=== PATIENT | male | born 1995 | race Caucasian/White ===

== ENCOUNTER 2022-09-12 10:54 | Inpatient (IN) | payer OTHER ==
[2022-09-12] MEDS ORDERED: Morphine 4 MG/ML VIAL ONE ×3 (12:11→16:34)
[2022-09-12] MEDS ORDERED: Ketorolac Tromethamine 30 MG/ML VIAL ONE (13:51)
[2022-09-12] MEDS ORDERED: Albuterol 200 PUFF (6.7GM INHALER) INH PRN (15:21)
[2022-09-12] MEDS ORDERED: Piperacillin/Tazobactam 3.375 GM in Sodium Chloride 0.9% 100 ML IVPB SCH ×2 (15:30→16:00)
[2022-09-12] MEDS ORDERED: Piperacillin/Tazobactam 3.375 GM VIAL ONE (15:56)
[2022-09-12] MEDS ORDERED: VANCOMYCIN 1.75 GM/500 ML BAG 1.75 GM in Premix Bag 1 BAG IVPB SCH (16:00)
[2022-09-12] MEDS ORDERED: Morphine 4 MG/ML VIAL SLOW IVP SCH (16:30)
[2022-09-12 16:43] LABS: HIV (1/2) Antibody/Antigen Non-Reactive (NonReactive); HIV 1/2 INDEX 0.14 S/CO (<1.00)
[2022-09-12] MEDS: Acetaminophen 325 MG TAB PO PRN (17:58)
[2022-09-12] MEDS: Morphine 4 MG/ML VIAL SLOW IVP PRN ×2 (17:59→21:16)
[2022-09-12 18:16] LABS: ALT (SGPT) 93 U/L (8-55); AST (SGOT) 72 U/L (5-34); Albumin 3.1 g/dL (3.5-5.0); Alkaline Phosphatase 388 U/L (40-110); Bilirubin, Direct 0.6 mg/dL (0.1-0.3); Bilirubin, Total 0.9 mg/dL (0.2-1.2); Protein, Total 6.6 g/dL (6.0-8.3)
[2022-09-12] MEDS: Sodium Chloride 0.9% 1,000 ML IV SCH (19:47)
[2022-09-12] MEDS: Piperacillin/Tazobactam 3.375 GM in Sodium Chloride 0.9% 100 ML IVPB SCH (19:58)
[2022-09-12] MEDS: Vancomycin 1 GM in Premix Bag 1 BAG IVPB SCH (23:35)
[2022-09-13] MEDS: Morphine 4 MG/ML VIAL SLOW IVP PRN ×2 (00:25→03:48)
[2022-09-13] MEDS: Piperacillin/Tazobactam 3.375 GM in Sodium Chloride 0.9% 100 ML IVPB SCH ×3 (03:30→20:08)
[2022-09-13 03:57] LABS: #Basophils 0.1 thou/uL (0.0-0.2); #Monocytes 1.2 thou/uL (0.11-0.59); #Neutrophils 23.2 thou/uL (1.40-6.50); %Basophils 0.4 % (0.0-1.0); %Lymphocytes 2.2 % (21.0-51.0); %Monocytes 4.6 % (0.0-10.0); %Neutrophils 92.2 % (42.0-75.0); Hematocrit 36.3 % (42.0-52.0); Hemoglobin 11.7 g/dL (14.0-18.0); Mean Corpuscular HGB CONC 32.2 g/dL (32.0-36.0); Mean Corpuscular Hemoglobin 29.3 pg (27.0-31.0); Mean Corpuscular Volume 90.8 fl (78.0-98.0); Mean Platelet Volume 8.9 fL (7.4-10.4); Platelet Count 495 10x3/uL (130-400); RBC Distribution Width 13.2 % (11.5-14.5); White Blood Cell (WBC) Count 25.2 10x3/uL (4.8-10.8)
[2022-09-13 04:27] LABS: Anion Gap 13 mmol/L (10-20); BUN (Urea Nitrogen) 10 mg/dL (8.9-20.6); Calc. Creatinine Clearance 140 mL/min (70-130); Calcium 8.9 mg/dL (7.8-10.44); Carbon Dioxide 23 mmol/L (22-29); Chloride 98 mmol/L (98-107); Estimated GFR 127; Glucose 79 mg/dL (70-105); Potassium 3.8 mmol/L (3.5-5.1); Sodium 130 mmol/L (136-145)
[2022-09-13 04:38] LABS: Manual Diff?? YES
[2022-09-13 06:33] LABS: Band 11 % (5-11); Burr Cells SLIGHT = 2-5 cells HPF (0-1); CellaVision Operator ID LAB.JMM; Lymphocytes 1 % (21-51); Monocytes 4 % (0-10); Neutrophil 84 % (42-75); Platelet Adequacy Comment Platelets Normal; Polychromasia SLIGHT = 2-3 cells HPF (0-2); Total Cell Count 98
[2022-09-13] MEDS: Vancomycin 1 GM in Premix Bag 1 BAG IVPB SCH ×3 (07:13→18:33)
[2022-09-13] MEDS: Sodium Chloride 0.9% 1,000 ML IV SCH ×2 (07:13→20:10)
[2022-09-13] MEDS: Acetaminophen 325 MG TAB PO PRN (07:29)
[2022-09-13 10:03] LABS: HBSAB Concentration Less than 8.00 mIU/mL; HBSAg Index 0.17 S/CO (0-0.99); Hep A IgM AB Non-Reactive S/CO (NonReactive); Hep A IgM S/CO 0.15 S/CO (0-0.79); Hep B Core Total Ab Non-Reactive (NonReactive); Hep B Surf AB Non-Reactive (NonReactive); Hep B Surf Ag Non-Reactive S/CO (NonReactive); Hep C IgG Ab Non-Reactive S/CO (NonReactive); Hep C Index 0.08 S/CO (0-0.79)
[2022-09-13] MEDS: fentaNYL 50 mcg/mL 1 mL Vial SLOW IVP PRN ×5 (11:28→22:22)
[2022-09-13] MEDS ORDERED: Propofol 1,000 MG/100 ML VIAL IV PRN (12:22)
[2022-09-13] MEDS ORDERED: Lorazepam 0.5 MG TAB PO PRN (16:39)
[2022-09-13] MEDS ORDERED: Lorazepam 2 MG/ML VIAL SLOW IVP PRN (16:39)
[2022-09-13] MEDS ORDERED: Dexmedetomidine In 0.9 % NaCl 100 ML IVPB SCH (16:45)
[2022-09-13] MEDS: Guaifenesin DM 100-10/5 ML UDCUP PO PRN (17:16)
[2022-09-13] MEDS: Dexmedetomidine 400 MCG, Admixture Fee 1 EACH in Sodium Chloride 0.9% 96 ML IVPB SCH (20:09)
[2022-09-13 20:56] LABS: RBC Count-Automated (BF) 2146 /cu.mm; WBC/Nucleated-Auto (BF) 15278 /cu.mm
[2022-09-13 21:07] LABS: BF Color Yellow; Body Fluid Source Thoracentesis Fluid; Clarity Cloudy/Turbid (Clear); Tube # EDTA
[2022-09-13 21:09] LABS: BF Segmented Neutrophils 65 %; Cell Count Non Hematic 19 %; Lymphocytes 14 %
[2022-09-13 23:01] LABS: Actual Bicarbonate (HCO3a) 27.4 mEq/L (22-28); Base Excess (BEa) 2.1 mEq/L (-2.0 to +3.0); CO2 Tension 45.3 mmHg (35.0-45.0); Calcium, Ionized (arterial) 1.18 mmol/L (1.12-1.30); Carboxyhemoglobin (COHb) 0.2 gm% (0.0-3.0); Hematocrit-ABG 37 % (42.0-52.0); Hemoglobin (Hb) 12.5 g/dL (14.0-18.0); O2 Tension (PaO2), arterial 99.4 mmHg (80.0-100.0); Potassium - ABG Lab 3.75 mmol/L (3.70-5.30); pH, Arterial 7.399 (7.35-7.45)
[2022-09-13 23:18] LABS: Puncture Site RRA
[2022-09-13 23:20] LABS: ALV-art Gradient 129.175 mmHg (0-20)
[2022-09-14] MEDS: fentaNYL 50 mcg/mL 1 mL Vial SLOW IVP PRN ×4 (00:59→11:24)
[2022-09-14] MEDS: Vancomycin 1 GM in Premix Bag 1 BAG IVPB SCH (01:00)
[2022-09-14 01:29] LABS: #Eosinphils 0.1 thou/uL (0.0-0.7); #Monocytes 0.8 thou/uL (0.11-0.59); #Neutrophils 13.1 thou/uL (1.40-6.50); %Basophils 0.3 % (0.0-1.0); %Eosinophils 0.3 % (0.0-10.0); %Lymphocytes 3.2 % (21.0-51.0); %Monocytes 5.4 % (0.0-10.0); %Neutrophils 90.3 % (42.0-75.0); Hematocrit 32.6 % (42.0-52.0); Hemoglobin 10.7 g/dL (14.0-18.0); Mean Corpuscular HGB CONC 32.8 g/dL (32.0-36.0); Mean Corpuscular Hemoglobin 29.5 pg (27.0-31.0); Mean Corpuscular Volume 89.8 fl (78.0-98.0); Mean Platelet Volume 9.1 fL (7.4-10.4); Platelet Count 393 10x3/uL (130-400); Red Blood Cell (RBC) Count 3.63 mill/uL (4.70-6.10); White Blood Cell (WBC) Count 14.5 10x3/uL (4.8-10.8)
[2022-09-14] MEDS ORDERED: Vancomycin HCl 500 MG in Sodium Chloride 0.9% 100 ML IVPB SCH (02:00)
[2022-09-14 02:43] LABS: ALT (SGPT) 69 U/L (8-55); AST (SGOT) 54 U/L (5-34); Albumin 2.7 g/dL (3.5-5.0); Alkaline Phosphatase 251 U/L (40-110); Anion Gap 12 mmol/L (10-20); BUN (Urea Nitrogen) 11 mg/dL (8.9-20.6); Bilirubin, Total 1.6 mg/dL (0.2-1.2); Calc. Creatinine Clearance 157 mL/min (70-130); Calcium 9.1 mg/dL (7.8-10.44); Carbon Dioxide 25 mmol/L (22-29); Chloride 97 mmol/L (98-107); Estimated GFR 131; Globulin 3.7 g/dL (2.4-3.5); Glucose 93 mg/dL (70-105); Potassium 3.9 mmol/L (3.5-5.1); Protein, Total 6.4 g/dL (6.0-8.3); Sodium 130 mmol/L (136-145)
[2022-09-14] MEDS: Piperacillin/Tazobactam 3.375 GM in Sodium Chloride 0.9% 100 ML IVPB SCH ×3 (03:20→19:15)
[2022-09-14] MEDS: Pyrazinamide 500 MG TAB PO SCH ×2 (07:40→07:43)
[2022-09-14] MEDS: Rifampin 300 MG CAP PO SCH (07:43)
[2022-09-14] MEDS: pyridOXINE 50 MG (B6) TAB PO SCH (07:44)
[2022-09-14] MEDS: Ethambutol HCl 400 MG TAB PO SCH (07:44)
[2022-09-14] MEDS: Isoniazid 100 MG TAB PO SCH (07:44)
[2022-09-14] MEDS: Dexmedetomidine 400 MCG, Admixture Fee 1 EACH in Sodium Chloride 0.9% 96 ML IVPB SCH (07:47)
[2022-09-14] MEDS: Guaifenesin DM 100-10/5 ML UDCUP PO PRN ×4 (09:27→22:11)
[2022-09-14] MEDS: Sodium Chloride 0.9% 1,000 ML IV SCH ×2 (11:25→23:41)
[2022-09-14] MEDS: Vancomycin 1.5 GRAM/300 ML BAG 1.5 GM in Premix Bag 1 BAG IVPB SCH ×2 (11:25→17:41)
[2022-09-14] MEDS ORDERED: Naloxone HCl 0.4 mg/ml Vial IV PRN (14:00)
[2022-09-14] MEDS: HYDROmorphone/PF 10 MG in Sodium Chloride 0.9% 99 ML IVPB PRN (14:50)
[2022-09-15] MEDS: Vancomycin 1.5 GRAM/300 ML BAG 1.5 GM in Premix Bag 1 BAG IVPB SCH ×2 (01:09→11:01)
[2022-09-15 01:28] LABS: #Eosinphils 0.1 thou/uL (0.0-0.7); #Monocytes 0.7 thou/uL (0.11-0.59); %Basophils 0.4 % (0.0-1.0); %Eosinophils 0.7 % (0.0-10.0); %Lymphocytes 10.1 % (21.0-51.0); %Monocytes 9.2 % (0.0-10.0); %Neutrophils 79.2 % (42.0-75.0); Hematocrit 37.3 % (42.0-52.0); Hemoglobin 11.7 g/dL (14.0-18.0); Mean Corpuscular HGB CONC 31.4 g/dL (32.0-36.0); Mean Corpuscular Hemoglobin 29.1 pg (27.0-31.0); Mean Corpuscular Volume 92.8 fl (78.0-98.0); Mean Platelet Volume 8.9 fL (7.4-10.4); Platelet Count 323 10x3/uL (130-400); Red Blood Cell (RBC) Count 4.02 mill/uL (4.70-6.10); White Blood Cell (WBC) Count 7.6 10x3/uL (4.8-10.8)
[2022-09-15 02:01] LABS: ALT (SGPT) 70 U/L (8-55); AST (SGOT) 69 U/L (5-34); Albumin 2.7 g/dL (3.5-5.0); Alkaline Phosphatase 364 U/L (40-110); Anion Gap 16 mmol/L (10-20); BUN (Urea Nitrogen) 15 mg/dL (8.9-20.6); Bilirubin, Total 1.5 mg/dL (0.2-1.2); Calc. Creatinine Clearance 146 mL/min (70-130); Calcium 8.9 mg/dL (7.8-10.44); Carbon Dioxide 21 mmol/L (22-29); Chloride 99 mmol/L (98-107); Estimated GFR 128; Globulin 3.8 g/dL (2.4-3.5); Glucose 83 mg/dL (70-105); Potassium 4.1 mmol/L (3.5-5.1); Protein, Total 6.5 g/dL (6.0-8.3); Sodium 132 mmol/L (136-145)
[2022-09-15] MEDS: Piperacillin/Tazobactam 3.375 GM in Sodium Chloride 0.9% 100 ML IVPB SCH ×3 (04:16→19:29)
[2022-09-15] MEDS: Guaifenesin DM 100-10/5 ML UDCUP PO PRN ×3 (07:50→17:12)
[2022-09-15] MEDS: pyridOXINE 50 MG (B6) TAB PO SCH (08:27)
[2022-09-15] MEDS: Ethambutol HCl 400 MG TAB PO SCH (08:27)
[2022-09-15] MEDS: Isoniazid 100 MG TAB PO SCH (08:29)
[2022-09-15] MEDS: Pyrazinamide 500 MG TAB PO SCH (08:29)
[2022-09-15] MEDS: Rifampin 300 MG CAP PO SCH (08:30)
[2022-09-15] MEDS: HYDROmorphone/PF 10 MG in Sodium Chloride 0.9% 99 ML IVPB PRN (10:02)
[2022-09-15 12:46] LABS: ANA Symphony (Qualitative) Negative (Negative); ANA Symphony (Quantitative) 0.6 Ratio (< 0.7 Negative); dsDNA IgG Antibody 1.4 IU/mL (<10 Negative)
[2022-09-15] MEDS: Acetaminophen 325 MG TAB PO PRN (15:10)
[2022-09-15] MEDS: Sodium Chloride 0.9% 1,000 ML IV SCH (17:12)
[2022-09-15 19:14] LABS: Cytoplasmic (C-ANCA) <1:20 titer (Neg:<1:20); Myeloperoxidase AutoAbs <0.2 units (0.0-0.9); Perinuclear (P-ANCA) <1:20 titer (Neg:<1:20); Proteinase-3 AutoAbs Less than 0.2 units (0.0-0.9)
[2022-09-15] MEDS: Guaifenesin DM 100-10/5 ML UDCUP PO SCH (20:01)
[2022-09-16] MEDS: Guaifenesin DM 100-10/5 ML UDCUP PO SCH ×6 (01:09→20:11)
[2022-09-16] MEDS: HYDROmorphone/PF 10 MG in Sodium Chloride 0.9% 99 ML IVPB PRN ×2 (01:48→15:52)
[2022-09-16] MEDS: Sodium Chloride 0.9% 1,000 ML IV SCH ×2 (01:56→15:52)
[2022-09-16] MEDS: Piperacillin/Tazobactam 3.375 GM in Sodium Chloride 0.9% 100 ML IVPB SCH ×3 (04:02→20:10)
[2022-09-16 05:14] LABS: #Eosinphils 0.1 thou/uL (0.0-0.7); #Monocytes 1.1 thou/uL (0.11-0.59); #Neutrophils 6.7 thou/uL (1.40-6.50); %Basophils 0.5 % (0.0-1.0); %Eosinophils 0.6 % (0.0-10.0); %Lymphocytes 6.3 % (21.0-51.0); %Neutrophils 78.9 % (42.0-75.0); Hematocrit 35.3 % (42.0-52.0); Hemoglobin 11.6 g/dL (14.0-18.0); Mean Corpuscular HGB CONC 32.9 g/dL (32.0-36.0); Mean Corpuscular Hemoglobin 28.7 pg (27.0-31.0); Mean Corpuscular Volume 87.4 fl (78.0-98.0); Mean Platelet Volume 8.9 fL (7.4-10.4); Platelet Count 387 10x3/uL (130-400); RBC Distribution Width 12.9 % (11.5-14.5); Red Blood Cell (RBC) Count 4.04 mill/uL (4.70-6.10); White Blood Cell (WBC) Count 8.5 10x3/uL (4.8-10.8)
[2022-09-16 06:13] LABS: ALT (SGPT) 65 U/L (8-55); AST (SGOT) 65 U/L (5-34); Albumin 2.4 g/dL (3.5-5.0); Alkaline Phosphatase 476 U/L (40-110); Anion Gap 13 mmol/L (10-20); BUN (Urea Nitrogen) 9 mg/dL (8.9-20.6); Bilirubin, Total 1.8 mg/dL (0.2-1.2); Calc. Creatinine Clearance 161 mL/min (70-130); Carbon Dioxide 27 mmol/L (22-29); Chloride 94 mmol/L (98-107); Estimated GFR 132; Globulin 3.5 g/dL (2.4-3.5); Glucose 110 mg/dL (70-105); Potassium 3.4 mmol/L (3.5-5.1); Protein, Total 5.9 g/dL (6.0-8.3); Sodium 131 mmol/L (136-145)
[2022-09-16] MEDS: Isoniazid 100 MG TAB PO SCH (08:28)
[2022-09-16] MEDS: pyridOXINE 50 MG (B6) TAB PO SCH (08:28)
[2022-09-16] MEDS: Rifampin 300 MG CAP PO SCH (08:28)
[2022-09-16] MEDS: Ethambutol HCl 400 MG TAB PO SCH (08:29)
[2022-09-16] MEDS: Pyrazinamide 500 MG TAB PO SCH (08:29)
[2022-09-16] MEDS: Ondansetron PF 4 MG/2 ML Vial IVP PRN (12:34)
[2022-09-16 20:36] LABS: Histoplasma Yeast AB (CF) Negative (Neg:<1:2)
[2022-09-17] MEDS: Guaifenesin DM 100-10/5 ML UDCUP PO SCH ×6 (00:01→21:01)
[2022-09-17] MEDS: HYDROmorphone/PF 10 MG in Sodium Chloride 0.9% 99 ML IVPB PRN ×3 (03:17→21:21)
[2022-09-17] MEDS: Piperacillin/Tazobactam 3.375 GM in Sodium Chloride 0.9% 100 ML IVPB SCH ×2 (03:18→12:10)
[2022-09-17] MEDS: Sodium Chloride 0.9% 1,000 ML IV SCH (04:36)
[2022-09-17 04:56] LABS: #Basophils 0.1 thou/uL (0.0-0.2); #Eosinphils 0.1 thou/uL (0.0-0.7); #Monocytes 1.7 thou/uL (0.11-0.59); #Neutrophils 13.8 thou/uL (1.40-6.50); %Basophils 0.3 % (0.0-1.0); %Eosinophils 0.3 % (0.0-10.0); %Lymphocytes 4.2 % (21.0-51.0); %Monocytes 10.3 % (0.0-10.0); %Neutrophils 84.2 % (42.0-75.0); Hematocrit 34.3 % (42.0-52.0); Hemoglobin 11.5 g/dL (14.0-18.0); Mean Corpuscular HGB CONC 33.5 g/dL (32.0-36.0); Mean Corpuscular Hemoglobin 29.3 pg (27.0-31.0); Mean Corpuscular Volume 87.5 fl (78.0-98.0); Mean Platelet Volume 9.1 fL (7.4-10.4); Platelet Count 405 10x3/uL (130-400); Red Blood Cell (RBC) Count 3.92 mill/uL (4.70-6.10); White Blood Cell (WBC) Count 16.4 10x3/uL (4.8-10.8)
[2022-09-17 05:27] LABS: ALT (SGPT) 54 U/L (8-55); AST (SGOT) 53 U/L (5-34); Albumin 2.4 g/dL (3.5-5.0); Alkaline Phosphatase 441 U/L (40-110); Anion Gap 12 mmol/L (10-20); BUN (Urea Nitrogen) 6 mg/dL (8.9-20.6); Calc. Creatinine Clearance 178 mL/min (70-130); Calcium 8.3 mg/dL (7.8-10.44); Carbon Dioxide 28 mmol/L (22-29); Chloride 91 mmol/L (98-107); Estimated GFR 136; Globulin 3.4 g/dL (2.4-3.5); Glucose 107 mg/dL (70-105); Potassium 3.2 mmol/L (3.5-5.1); Protein, Total 5.8 g/dL (6.0-8.3); Sodium 128 mmol/L (136-145)
[2022-09-17] MEDS: Acetaminophen 325 MG TAB PO PRN ×2 (06:28→21:01)
[2022-09-17] MEDS: Rifampin 300 MG CAP PO SCH (08:17)
[2022-09-17] MEDS: Pyrazinamide 500 MG TAB PO SCH (08:17)
[2022-09-17] MEDS: pyridOXINE 50 MG (B6) TAB PO SCH (08:17)
[2022-09-17] MEDS: Isoniazid 100 MG TAB PO SCH (08:18)
[2022-09-17] MEDS: Ethambutol HCl 400 MG TAB PO SCH (08:18)
[2022-09-17] MEDS: Pantoprazole 40 MG VIAL IVP SCH (12:11)
[2022-09-17] MEDS: Ondansetron PF 4 MG/2 ML Vial IVP PRN (15:37)
[2022-09-17 16:15] LABS: Fungus Stain Final report (.)
[2022-09-17] MEDS ORDERED: Meropenem 1 GM in Sodium Chloride 0.9% 100 ML IVPB SCH (17:00)
[2022-09-17] MEDS ORDERED: Meropenem 500 MG in Sodium Chloride 0.9% 100 ML IVPB SCH (22:00)
[2022-09-18] MEDS: Guaifenesin DM 100-10/5 ML UDCUP PO SCH ×6 (00:29→20:16)
[2022-09-18] MEDS: Meropenem 1 GM in Sodium Chloride 0.9% 100 ML IVPB SCH ×3 (00:30→16:04)
[2022-09-18 04:59] LABS: #Basophils 0.1 thou/uL (0.0-0.2); #Eosinphils 0.1 thou/uL (0.0-0.7); #Monocytes 1.8 thou/uL (0.11-0.59); #Neutrophils 12.5 thou/uL (1.40-6.50); %Basophils 0.4 % (0.0-1.0); %Eosinophils 0.5 % (0.0-10.0); %Lymphocytes 6.5 % (21.0-51.0); %Monocytes 11.4 % (0.0-10.0); %Neutrophils 80.4 % (42.0-75.0); Hematocrit 32.2 % (42.0-52.0); Hemoglobin 10.8 g/dL (14.0-18.0); Mean Corpuscular HGB CONC 33.5 g/dL (32.0-36.0); Mean Corpuscular Hemoglobin 29.4 pg (27.0-31.0); Mean Corpuscular Volume 87.7 fl (78.0-98.0); Mean Platelet Volume 9.1 fL (7.4-10.4); Platelet Count 326 10x3/uL (130-400); Red Blood Cell (RBC) Count 3.67 mill/uL (4.70-6.10); White Blood Cell (WBC) Count 15.5 10x3/uL (4.8-10.8)
[2022-09-18] MEDS: HYDROmorphone/PF 10 MG in Sodium Chloride 0.9% 99 ML IVPB PRN ×3 (05:02→20:17)
[2022-09-18 05:24] LABS: ALT (SGPT) 47 U/L (8-55); AST (SGOT) 53 U/L (5-34); Albumin 2.2 g/dL (3.5-5.0); Alkaline Phosphatase 394 U/L (40-110); Anion Gap 10 mmol/L (10-20); BUN (Urea Nitrogen) 8 mg/dL (8.9-20.6); Bilirubin, Total 2.1 mg/dL (0.2-1.2); Calc. Creatinine Clearance 192 mL/min (70-130); Calcium 8.2 mg/dL (7.8-10.44); Carbon Dioxide 32 mmol/L (22-29); Chloride 92 mmol/L (98-107); Estimated GFR 136; Globulin 3.2 g/dL (2.4-3.5); Glucose 110 mg/dL (70-105); Potassium 3.1 mmol/L (3.5-5.1); Protein, Total 5.4 g/dL (6.0-8.3); Sodium 131 mmol/L (136-145)
[2022-09-18] MEDS ORDERED: Electrolyte Replacement Protocol 1 EACH FS SCH (07:15)
[2022-09-18] MEDS ORDERED: Potassium Chloride 20 MEQ TAB PO SCH ×2 (08:00→14:00)
[2022-09-18] MEDS: Rifampin 300 MG CAP PO SCH (08:13)
[2022-09-18] MEDS: Isoniazid 100 MG TAB PO SCH (08:13)
[2022-09-18] MEDS: Ethambutol HCl 400 MG TAB PO SCH (08:13)
[2022-09-18] MEDS: Pyrazinamide 500 MG TAB PO SCH (08:13)
[2022-09-18] MEDS: pyridOXINE 50 MG (B6) TAB PO SCH (08:14)
[2022-09-18] MEDS: Pantoprazole 40 MG VIAL IVP SCH (11:59)
[2022-09-18] MEDS: Ondansetron PF 4 MG/2 ML Vial IVP PRN (11:59)
[2022-09-18 12:59] LABS: Potassium 3.4 mmol/L (3.5-5.1)
[2022-09-18] MEDS: Acetaminophen 325 MG TAB PO PRN (18:05)
[2022-09-18 18:45] LABS: Potassium 3.5 mmol/L (3.5-5.1)
[2022-09-19] MEDS: Guaifenesin DM 100-10/5 ML UDCUP PO SCH ×2 (00:31→04:32)
[2022-09-19] MEDS: Meropenem 1 GM in Sodium Chloride 0.9% 100 ML IVPB SCH ×3 (00:31→17:23)
[2022-09-19 04:29] LABS: #Basophils 0.1 thou/uL (0.0-0.2); #Eosinphils 0.1 thou/uL (0.0-0.7); #Monocytes 1.8 thou/uL (0.11-0.59); #Neutrophils 13.5 thou/uL (1.40-6.50); %Basophils 0.4 % (0.0-1.0); %Eosinophils 0.5 % (0.0-10.0); %Lymphocytes 4.8 % (21.0-51.0); %Monocytes 10.8 % (0.0-10.0); %Neutrophils 82.6 % (42.0-75.0); Hematocrit 32.7 % (42.0-52.0); Hemoglobin 10.9 g/dL (14.0-18.0); Mean Corpuscular HGB CONC 33.3 g/dL (32.0-36.0); Mean Corpuscular Hemoglobin 28.9 pg (27.0-31.0); Mean Corpuscular Volume 86.7 fl (78.0-98.0); Mean Platelet Volume 9.6 fL (7.4-10.4); RBC Distribution Width 13.2 % (11.5-14.5); Red Blood Cell (RBC) Count 3.77 mill/uL (4.70-6.10); White Blood Cell (WBC) Count 16.4 10x3/uL (4.8-10.8)
[2022-09-19 04:32] LABS: Platelet Count 437 10x3/uL (130-400)
[2022-09-19 04:49] LABS: Phosphorus 2.5 mg/dL (2.3-4.7)
[2022-09-19 04:50] LABS: ALT (SGPT) 45 U/L (8-55); AST (SGOT) 55 U/L (5-34); Albumin 2.3 g/dL (3.5-5.0); Alkaline Phosphatase 472 U/L (40-110); Anion Gap 14 mmol/L (10-20); BUN (Urea Nitrogen) 8 mg/dL (8.9-20.6); Bilirubin, Total 2.3 mg/dL (0.2-1.2); Calc. Creatinine Clearance 211 mL/min (70-130); Calcium 8.5 mg/dL (7.8-10.44); Carbon Dioxide 29 mmol/L (22-29); Chloride 90 mmol/L (98-107); Estimated GFR 141; Globulin 3.3 g/dL (2.4-3.5); Glucose 99 mg/dL (70-105); Magnesium 1.8 mg/dL (1.6-2.6); Potassium 3.5 mmol/L (3.5-5.1); Protein, Total 5.6 g/dL (6.0-8.3); Sodium 129 mmol/L (136-145)
[2022-09-19] MEDS: HYDROmorphone/PF 10 MG in Sodium Chloride 0.9% 99 ML IVPB PRN ×2 (05:34→14:56)
[2022-09-19] MEDS ORDERED: Magnesium 2 GM/50 ML(in water) 2 GM in Premix Bag 1 BAG IVPB SCH (08:00)
[2022-09-19] MEDS ORDERED: Potassium Chloride 20 MEQ TAB PO SCH (08:00)
[2022-09-19] MEDS ORDERED: Ketorolac Tromethamine 30 MG/ML VIAL IVP PRN (08:01)
[2022-09-19] MEDS: guaiFENesin ER 600 MG TAB PO SCH ×2 (08:26→20:00)
[2022-09-19] MEDS: Rifampin 300 MG CAP PO SCH (08:26)
[2022-09-19] MEDS: Pyrazinamide 500 MG TAB PO SCH (08:26)
[2022-09-19] MEDS: pyridOXINE 50 MG (B6) TAB PO SCH (08:26)
[2022-09-19] MEDS: Isoniazid 100 MG TAB PO SCH (08:27)
[2022-09-19] MEDS: Benzonatate 100 MG CAP PO SCH ×3 (08:27→20:00)
[2022-09-19] MEDS: Ethambutol HCl 400 MG TAB PO SCH (08:27)
[2022-09-19] MEDS: Pantoprazole 40 MG VIAL IVP SCH (11:59)
[2022-09-19] MEDS ORDERED: traMADol HCl 50 MG TAB PO PRN (12:20)
[2022-09-19] MEDS ORDERED: HYDROcodone/Acetaminophen 5/325 mg Tablet PO PRN (12:20)
[2022-09-19] MEDS: Ondansetron PF 4 MG/2 ML Vial IVP PRN (14:19)
[2022-09-19] MEDS: Ketorolac Tromethamine 30 MG/ML VIAL IVP SCH (17:22)
[2022-09-19] MEDS: Pregabalin 75 MG CAP PO SCH (20:00)
[2022-09-20] MEDS: Meropenem 1 GM in Sodium Chloride 0.9% 100 ML IVPB SCH ×3 (00:17→16:19)
[2022-09-20] MEDS: Ketorolac Tromethamine 30 MG/ML VIAL IVP SCH ×3 (00:17→12:10)
[2022-09-20] MEDS ORDERED: Senokot S 8.6-50 MG TAB PO PRN (02:42)
[2022-09-20] MEDS ORDERED: Sodium Chloride 0.9% 500 ML IV SCH (02:45)
[2022-09-20] MEDS ORDERED: D5 1/2 NS w/10 mEq KCl 1,000 ML/1,000 ML BAG IV SCH (02:45)
[2022-09-20 04:30] LABS: #Basophils 0.1 thou/uL (0.0-0.2); #Eosinphils 0.1 thou/uL (0.0-0.7); #Monocytes 1.7 thou/uL (0.11-0.59); #Neutrophils 17.9 thou/uL (1.40-6.50); %Basophils 0.3 % (0.0-1.0); %Eosinophils 0.7 % (0.0-10.0); %Lymphocytes 3.7 % (21.0-51.0); %Monocytes 8.3 % (0.0-10.0); %Neutrophils 86.3 % (42.0-75.0); Hematocrit 32.7 % (42.0-52.0); Hemoglobin 10.9 g/dL (14.0-18.0); Mean Corpuscular HGB CONC 33.3 g/dL (32.0-36.0); Mean Corpuscular Hemoglobin 29.1 pg (27.0-31.0); Mean Corpuscular Volume 87.2 fl (78.0-98.0); Mean Platelet Volume 8.9 fL (7.4-10.4); Platelet Count 484 10x3/uL (130-400); RBC Distribution Width 13.3 % (11.5-14.5); Red Blood Cell (RBC) Count 3.75 mill/uL (4.70-6.10); White Blood Cell (WBC) Count 20.8 10x3/uL (4.8-10.8)
[2022-09-20 04:53] LABS: ALT (SGPT) 48 U/L (8-55); AST (SGOT) 65 U/L (5-34); Albumin 2.2 g/dL (3.5-5.0); Alkaline Phosphatase 535 U/L (40-110); Anion Gap 14 mmol/L (10-20); BUN (Urea Nitrogen) 11 mg/dL (8.9-20.6); Bilirubin, Total 2.7 mg/dL (0.2-1.2); Calc. Creatinine Clearance 210 mL/min (70-130); Carbon Dioxide 27 mmol/L (22-29); Chloride 90 mmol/L (98-107); Estimated GFR 142; Globulin 3.4 g/dL (2.4-3.5); Glucose 104 mg/dL (70-105); Potassium 3.5 mmol/L (3.5-5.1); Protein, Total 5.6 g/dL (6.0-8.3); Sodium 127 mmol/L (136-145)
[2022-09-20] MEDS: HYDROmorphone/PF 10 MG in Sodium Chloride 0.9% 99 ML IVPB PRN (07:25)
[2022-09-20] MEDS ORDERED: Potassium Chloride 20 MEQ TAB PO SCH (08:00)
[2022-09-20] MEDS: Polyethylene Glycol 3350 17 GM Packet PO SCH (09:28)
[2022-09-20] MEDS: Pyrazinamide 500 MG TAB PO SCH (09:29)
[2022-09-20] MEDS: Isoniazid 100 MG TAB PO SCH (09:29)
[2022-09-20] MEDS: Pregabalin 75 MG CAP PO SCH ×2 (09:29→20:57)
[2022-09-20] MEDS: Ethambutol HCl 400 MG TAB PO SCH (09:30)
[2022-09-20] MEDS: guaiFENesin ER 600 MG TAB PO SCH ×2 (09:30→20:57)
[2022-09-20] MEDS: Rifampin 300 MG CAP PO SCH (09:30)
[2022-09-20] MEDS: Benzonatate 100 MG CAP PO SCH ×3 (09:30→20:57)
[2022-09-20] MEDS: pyridOXINE 50 MG (B6) TAB PO SCH (09:35)
[2022-09-20] MEDS: Pantoprazole 40 MG VIAL IVP SCH (12:10)
[2022-09-20] MEDS: Acetaminophen/Codeine 30-300mg Tablet PO PRN ×2 (12:21→18:00)
[2022-09-20] MEDS: Acetaminophen 325 MG TAB PO PRN (18:46)
[2022-09-20] MEDS: Melatonin 3 MG TAB PO PRN (21:24)
[2022-09-21] MEDS: Meropenem 1 GM in Sodium Chloride 0.9% 100 ML IVPB SCH ×2 (00:17→08:29)
[2022-09-21] MEDS: Acetaminophen/Codeine 30-300mg Tablet PO PRN ×4 (00:18→14:05)
[2022-09-21 04:42] LABS: #Basophils 0.1 thou/uL (0.0-0.2); #Eosinphils 0.1 thou/uL (0.0-0.7); #Monocytes 2.1 thou/uL (0.11-0.59); %Basophils 0.4 % (0.0-1.0); %Eosinophils 0.7 % (0.0-10.0); %Lymphocytes 4.8 % (21.0-51.0); %Monocytes 9.7 % (0.0-10.0); %Neutrophils 83.7 % (42.0-75.0); Hematocrit 31.7 % (42.0-52.0); Hemoglobin 10.8 g/dL (14.0-18.0); Mean Corpuscular HGB CONC 34.1 g/dL (32.0-36.0); Mean Corpuscular Hemoglobin 29.3 pg (27.0-31.0); Mean Corpuscular Volume 85.9 fl (78.0-98.0); Mean Platelet Volume 8.4 fL (7.4-10.4); Platelet Count 531 10x3/uL (130-400); RBC Distribution Width 13.6 % (11.5-14.5); Red Blood Cell (RBC) Count 3.69 mill/uL (4.70-6.10); White Blood Cell (WBC) Count 21.4 10x3/uL (4.8-10.8)
[2022-09-21 05:05] LABS: ALT (SGPT) 55 U/L (8-55); AST (SGOT) 82 U/L (5-34); Albumin 2.2 g/dL (3.5-5.0); Alkaline Phosphatase 648 U/L (40-110); Anion Gap 11 mmol/L (10-20); BUN (Urea Nitrogen) 9 mg/dL (8.9-20.6); Bilirubin, Total 2.6 mg/dL (0.2-1.2); Calc. Creatinine Clearance 200 mL/min (70-130); Carbon Dioxide 26 mmol/L (22-29); Chloride 94 mmol/L (98-107); Estimated GFR 141; Globulin 3.4 g/dL (2.4-3.5); Glucose 105 mg/dL (70-105); Potassium 3.4 mmol/L (3.5-5.1); Protein, Total 5.6 g/dL (6.0-8.3); Sodium 128 mmol/L (136-145)
[2022-09-21] MEDS ORDERED: Potassium Chloride 20 MEQ TAB PO SCH (08:00)
[2022-09-21] MEDS: Potassium Chloride 20 MEQ in Premix Bag 1 BAG IVPB SCH ×2 (08:29→10:39)
[2022-09-21] MEDS: Benzonatate 100 MG CAP PO SCH ×3 (08:30→20:13)
[2022-09-21] MEDS: guaiFENesin ER 600 MG TAB PO SCH ×2 (08:30→20:40)
[2022-09-21] MEDS: Pregabalin 75 MG CAP PO SCH ×2 (08:31→20:13)
[2022-09-21] MEDS: Ethambutol HCl 400 MG TAB PO SCH (08:31)
[2022-09-21] MEDS: Rifampin 300 MG CAP PO SCH (08:31)
[2022-09-21] MEDS: pyridOXINE 50 MG (B6) TAB PO SCH (08:31)
[2022-09-21] MEDS: Pyrazinamide 500 MG TAB PO SCH (08:32)
[2022-09-21] MEDS: Isoniazid 100 MG TAB PO SCH (08:32)
[2022-09-21] MEDS: Polyethylene Glycol 3350 17 GM Packet PO SCH (08:32)
[2022-09-21] MEDS: HYDROmorphone/PF 10 MG in Sodium Chloride 0.9% 99 ML IVPB PRN (14:40)
[2022-09-21] MEDS: Ondansetron PF 4 MG/2 ML Vial IVP PRN (16:48)
[2022-09-21 17:10] LABS: QuantiFERON-TB Gold Plus POSITIVE (Negative)
[2022-09-21 17:23] LABS: Potassium 4.1 mmol/L (3.5-5.1)
[2022-09-22] MEDS: GUAIFENESIN SF SOLN 200 MG/10 ML UDCUP PO PRN ×2 (00:05→04:24)
[2022-09-22] MEDS: Acetaminophen/Codeine 30-300mg Tablet PO PRN ×2 (02:35→21:45)
[2022-09-22] MEDS ORDERED: Simethicone Chewable 80 MG TAB PO PRN (02:39)
[2022-09-22 04:35] LABS: #Basophils 0.1 thou/uL (0.0-0.2); #Eosinphils 0.2 thou/uL (0.0-0.7); #Monocytes 2.1 thou/uL (0.11-0.59); #Neutrophils 16.9 thou/uL (1.40-6.50); %Basophils 0.3 % (0.0-1.0); %Eosinophils 0.9 % (0.0-10.0); %Lymphocytes 5.6 % (21.0-51.0); %Monocytes 10.4 % (0.0-10.0); Hematocrit 32.8 % (42.0-52.0); Mean Corpuscular HGB CONC 33.5 g/dL (32.0-36.0); Mean Corpuscular Hemoglobin 28.8 pg (27.0-31.0); Mean Corpuscular Volume 85.9 fl (78.0-98.0); Mean Platelet Volume 8.5 fL (7.4-10.4); Platelet Count 575 10x3/uL (130-400); RBC Distribution Width 14.1 % (11.5-14.5); Red Blood Cell (RBC) Count 3.82 mill/uL (4.70-6.10); White Blood Cell (WBC) Count 20.6 10x3/uL (4.8-10.8)
[2022-09-22 04:58] LABS: ALT (SGPT) 73 U/L (8-55); AST (SGOT) 144 U/L (5-34); Albumin 2.3 g/dL (3.5-5.0); Alkaline Phosphatase 697 U/L (40-110); Anion Gap 12 mmol/L (10-20); BUN (Urea Nitrogen) 6 mg/dL (8.9-20.6); Bilirubin, Total 2.6 mg/dL (0.2-1.2); Calc. Creatinine Clearance 189 mL/min (70-130); Calcium 8.2 mg/dL (7.8-10.44); Carbon Dioxide 27 mmol/L (22-29); Chloride 94 mmol/L (98-107); Estimated GFR 138; Globulin 3.6 g/dL (2.4-3.5); Glucose 109 mg/dL (70-105); Potassium 3.5 mmol/L (3.5-5.1); Protein, Total 5.9 g/dL (6.0-8.3); Sodium 129 mmol/L (136-145)
[2022-09-22] MEDS: Rifampin 300 MG CAP PO SCH (07:53)
[2022-09-22] MEDS: Pregabalin 75 MG CAP PO SCH ×2 (07:53→20:11)
[2022-09-22] MEDS: guaiFENesin ER 600 MG TAB PO SCH ×2 (07:54→20:11)
[2022-09-22] MEDS: pyridOXINE 50 MG (B6) TAB PO SCH (07:54)
[2022-09-22] MEDS: Benzonatate 100 MG CAP PO SCH ×3 (07:54→20:11)
[2022-09-22] MEDS: Polyethylene Glycol 3350 17 GM Packet PO SCH (07:55)
[2022-09-22] MEDS ORDERED: Potassium Chloride 20 MEQ TAB PO SCH (08:00)
[2022-09-22] MEDS: Acetaminophen 325 MG TAB PO PRN ×2 (09:58→14:31)
[2022-09-22] MEDS: Pyrazinamide 500 MG TAB PO SCH (10:16)
[2022-09-22] MEDS: Ethambutol HCl 400 MG TAB PO SCH (10:16)
[2022-09-22] MEDS: Isoniazid 100 MG TAB PO SCH (10:17)
[2022-09-22] MEDS: HYDROmorphone/PF 10 MG in Sodium Chloride 0.9% 99 ML IVPB PRN (21:25)
[2022-09-23] MEDS: Melatonin 3 MG TAB PO PRN (01:09)
[2022-09-23] MEDS: GUAIFENESIN SF SOLN 200 MG/10 ML UDCUP PO PRN ×4 (01:09→22:53)
[2022-09-23] MEDS: Acetaminophen/Codeine 30-300mg Tablet PO PRN ×3 (05:03→22:53)
[2022-09-23 06:31] LABS: #Basophils 0.1 thou/uL (0.0-0.2); #Eosinphils 0.3 thou/uL (0.0-0.7); #Monocytes 1.9 thou/uL (0.11-0.59); #Neutrophils 14.8 thou/uL (1.40-6.50); %Basophils 0.4 % (0.0-1.0); %Eosinophils 1.5 % (0.0-10.0); %Lymphocytes 5.4 % (21.0-51.0); %Monocytes 10.5 % (0.0-10.0); %Neutrophils 81.4 % (42.0-75.0); Hematocrit 34.1 % (42.0-52.0); Hemoglobin 11.3 g/dL (14.0-18.0); Mean Corpuscular HGB CONC 33.1 g/dL (32.0-36.0); Mean Corpuscular Hemoglobin 28.7 pg (27.0-31.0); Mean Corpuscular Volume 86.5 fl (78.0-98.0); Mean Platelet Volume 8.9 fL (7.4-10.4); Platelet Count 648 10x3/uL (130-400); RBC Distribution Width 14.3 % (11.5-14.5); Red Blood Cell (RBC) Count 3.94 mill/uL (4.70-6.10); White Blood Cell (WBC) Count 18.1 10x3/uL (4.8-10.8)
[2022-09-23 07:09] LABS: ALT (SGPT) 78 U/L (8-55); AST (SGOT) 107 U/L (5-34); Albumin 2.3 g/dL (3.5-5.0); Alkaline Phosphatase 657 U/L (40-110); Anion Gap 4 mmol/L (10-20); BUN (Urea Nitrogen) 7 mg/dL (8.9-20.6); Bilirubin, Total 2.2 mg/dL (0.2-1.2); Calc. Creatinine Clearance 189 mL/min (70-130); Calcium 8.3 mg/dL (7.8-10.44); Carbon Dioxide 24 mmol/L (22-29); Chloride 104 mmol/L (98-107); Estimated GFR 138; Globulin 4.1 g/dL (2.4-3.5); Glucose 103 mg/dL (70-105); Potassium 3.9 mmol/L (3.5-5.1); Protein, Total 6.4 g/dL (6.0-8.3); Sodium 128 mmol/L (136-145)
[2022-09-23] MEDS: Pregabalin 75 MG CAP PO SCH ×2 (08:16→20:57)
[2022-09-23] MEDS: Rifampin 300 MG CAP PO SCH (08:16)
[2022-09-23] MEDS: Benzonatate 100 MG CAP PO SCH ×3 (08:17→20:57)
[2022-09-23] MEDS: guaiFENesin ER 600 MG TAB PO SCH ×2 (08:17→20:57)
[2022-09-23] MEDS: Polyethylene Glycol 3350 17 GM Packet PO SCH (08:17)
[2022-09-23] MEDS: pyridOXINE 50 MG (B6) TAB PO SCH (08:17)
[2022-09-23] MEDS: Isoniazid 100 MG TAB PO SCH (09:23)
[2022-09-23] MEDS: Ethambutol HCl 400 MG TAB PO SCH (09:24)
[2022-09-23] MEDS: Pyrazinamide 500 MG TAB PO SCH (09:24)
[2022-09-23 10:44] LABS: Reference Lab Name LABCORP
[2022-09-24 06:43] LABS: #Basophils 0.1 thou/uL (0.0-0.2); #Eosinphils 0.5 thou/uL (0.0-0.7); #Monocytes 1.8 thou/uL (0.11-0.59); #Neutrophils 10.8 thou/uL (1.40-6.50); %Basophils 0.4 % (0.0-1.0); %Eosinophils 3.3 % (0.0-10.0); %Lymphocytes 7.8 % (21.0-51.0); %Monocytes 12.6 % (0.0-10.0); %Neutrophils 74.8 % (42.0-75.0); Hematocrit 34.6 % (42.0-52.0); Hemoglobin 11.6 g/dL (14.0-18.0); Mean Corpuscular HGB CONC 33.5 g/dL (32.0-36.0); Mean Corpuscular Hemoglobin 28.7 pg (27.0-31.0); Mean Corpuscular Volume 85.6 fl (78.0-98.0); Mean Platelet Volume 8.6 fL (7.4-10.4); Platelet Count 665 10x3/uL (130-400); RBC Distribution Width 14.4 % (11.5-14.5); Red Blood Cell (RBC) Count 4.04 mill/uL (4.70-6.10); White Blood Cell (WBC) Count 14.5 10x3/uL (4.8-10.8)
[2022-09-24 07:05] LABS: ALT (SGPT) 71 U/L (8-55); AST (SGOT) 70 U/L (5-34); Albumin 2.3 g/dL (3.5-5.0); Alkaline Phosphatase 640 U/L (40-110); Bilirubin, Direct 1.2 mg/dL (0.1-0.3); Bilirubin, Total 1.6 mg/dL (0.2-1.2); Protein, Total 6.7 g/dL (6.0-8.3)
[2022-09-24] MEDS: Polyethylene Glycol 3350 17 GM Packet PO SCH (08:11)
[2022-09-24] MEDS: Isoniazid 100 MG TAB PO SCH (08:12)
[2022-09-24] MEDS: Ethambutol HCl 400 MG TAB PO SCH (08:12)
[2022-09-24] MEDS: guaiFENesin ER 600 MG TAB PO SCH ×2 (08:13→19:55)
[2022-09-24] MEDS: Rifampin 300 MG CAP PO SCH (08:13)
[2022-09-24] MEDS: Pregabalin 75 MG CAP PO SCH ×2 (08:13→19:56)
[2022-09-24] MEDS: Benzonatate 100 MG CAP PO SCH ×3 (08:13→19:56)
[2022-09-24] MEDS: pyridOXINE 50 MG (B6) TAB PO SCH (08:14)
[2022-09-24] MEDS: Pyrazinamide 500 MG TAB PO SCH (09:31)
[2022-09-24] MEDS: Acetaminophen 325 MG TAB PO PRN (11:06)
[2022-09-24] MEDS: Acetaminophen/Codeine 30-300mg Tablet PO PRN (19:54)
[2022-09-25] MEDS: HYDROmorphone/PF 10 MG in Sodium Chloride 0.9% 99 ML IVPB PRN (06:08)
[2022-09-25 06:38] LABS: #Basophils 0.1 thou/uL (0.0-0.2); #Eosinphils 0.3 thou/uL (0.0-0.7); #Monocytes 1.6 thou/uL (0.11-0.59); #Neutrophils 12.9 thou/uL (1.40-6.50); %Basophils 0.6 % (0.0-1.0); %Monocytes 9.8 % (0.0-10.0); %Neutrophils 79.6 % (42.0-75.0); Hemoglobin 11.8 g/dL (14.0-18.0); Mean Corpuscular HGB CONC 32.8 g/dL (32.0-36.0); Mean Corpuscular Hemoglobin 28.9 pg (27.0-31.0); Mean Platelet Volume 8.6 fL (7.4-10.4); Platelet Count 701 10x3/uL (130-400); RBC Distribution Width 14.5 % (11.5-14.5); Red Blood Cell (RBC) Count 4.08 mill/uL (4.70-6.10); White Blood Cell (WBC) Count 16.2 10x3/uL (4.8-10.8)
[2022-09-25 06:45] LABS: Mean Corpuscular Volume 88.2 fl (78.0-98.0)
[2022-09-25 07:05] LABS: ALT (SGPT) 63 U/L (8-55); AST (SGOT) 68 U/L (5-34); Albumin 2.6 g/dL (3.5-5.0); Alkaline Phosphatase 586 U/L (40-110); Bilirubin, Direct 1.1 mg/dL (0.1-0.3); Bilirubin, Total 1.6 mg/dL (0.2-1.2); Protein, Total 7.2 g/dL (6.0-8.3)
[2022-09-25] MEDS: guaiFENesin ER 600 MG TAB PO SCH ×2 (09:36→20:52)
[2022-09-25] MEDS: Pregabalin 75 MG CAP PO SCH ×2 (09:36→20:53)
[2022-09-25] MEDS: pyridOXINE 50 MG (B6) TAB PO SCH (09:37)
[2022-09-25] MEDS: Benzonatate 100 MG CAP PO SCH ×3 (09:37→20:52)
[2022-09-25] MEDS: Rifampin 300 MG CAP PO SCH (09:37)
[2022-09-25] MEDS: Pyrazinamide 500 MG TAB PO SCH (09:38)
[2022-09-25] MEDS: Ethambutol HCl 400 MG TAB PO SCH (09:38)
[2022-09-25] MEDS: Polyethylene Glycol 3350 17 GM Packet PO SCH (09:39)
[2022-09-25] MEDS: Isoniazid 100 MG TAB PO SCH (10:17)
[2022-09-25] MEDS: GUAIFENESIN SF SOLN 200 MG/10 ML UDCUP PO PRN (15:21)
[2022-09-25] MEDS: Acetaminophen/Codeine 30-300mg Tablet PO PRN (18:35)
[2022-09-26] MEDS: GUAIFENESIN SF SOLN 200 MG/10 ML UDCUP PO PRN (00:26)
[2022-09-26 07:40] LABS: #Basophils 0.1 thou/uL (0.0-0.2); #Eosinphils 0.4 thou/uL (0.0-0.7); #Monocytes 1.4 thou/uL (0.11-0.59); #Neutrophils 9.5 thou/uL (1.40-6.50); %Basophils 0.7 % (0.0-1.0); %Eosinophils 3.5 % (0.0-10.0); %Lymphocytes 9.3 % (21.0-51.0); %Neutrophils 74.6 % (42.0-75.0); Hematocrit 35.4 % (42.0-52.0); Hemoglobin 11.5 g/dL (14.0-18.0); Mean Corpuscular HGB CONC 32.5 g/dL (32.0-36.0); Mean Corpuscular Hemoglobin 28.6 pg (27.0-31.0); Mean Corpuscular Volume 88.1 fl (78.0-98.0); Mean Platelet Volume 8.7 fL (7.4-10.4); Platelet Count 695 10x3/uL (130-400); RBC Distribution Width 14.5 % (11.5-14.5); Red Blood Cell (RBC) Count 4.02 mill/uL (4.70-6.10); White Blood Cell (WBC) Count 12.8 10x3/uL (4.8-10.8)
[2022-09-26 08:05] LABS: ALT (SGPT) 55 U/L (8-55); AST (SGOT) 47 U/L (5-34); Albumin 2.6 g/dL (3.5-5.0); Alkaline Phosphatase 480 U/L (40-110); Anion Gap 12 mmol/L (10-20); BUN (Urea Nitrogen) 9 mg/dL (8.9-20.6); Bilirubin, Direct 0.9 mg/dL (0.1-0.3); Bilirubin, Total 1.3 mg/dL (0.2-1.2); Calc. Creatinine Clearance 173 mL/min (70-130); Calcium 8.7 mg/dL (7.8-10.44); Carbon Dioxide 25 mmol/L (22-29); Chloride 100 mmol/L (98-107); Estimated GFR 137; Glucose 103 mg/dL (70-105); Potassium 4.1 mmol/L (3.5-5.1); Protein, Total 7.2 g/dL (6.0-8.3); Sodium 133 mmol/L (136-145)
[2022-09-26] MEDS: Ethambutol HCl 400 MG TAB PO SCH (08:48)
[2022-09-26] MEDS: Pyrazinamide 500 MG TAB PO SCH (08:48)
[2022-09-26] MEDS: Isoniazid 100 MG TAB PO SCH (08:48)
[2022-09-26] MEDS: Polyethylene Glycol 3350 17 GM Packet PO SCH (08:48)
[2022-09-26] MEDS: Pregabalin 75 MG CAP PO SCH ×2 (08:49→20:36)
[2022-09-26] MEDS: pyridOXINE 50 MG (B6) TAB PO SCH (08:49)
[2022-09-26] MEDS: Rifampin 300 MG CAP PO SCH (08:49)
[2022-09-26] MEDS: guaiFENesin ER 600 MG TAB PO SCH ×2 (08:49→20:36)
[2022-09-26] MEDS: Benzonatate 100 MG CAP PO SCH ×3 (08:52→20:36)
[2022-09-26] MEDS: HYDROmorphone/PF 10 MG in Sodium Chloride 0.9% 99 ML IVPB PRN (09:30)
[2022-09-26] MEDS: Acetaminophen/Codeine 30-300mg Tablet PO PRN ×2 (14:17→20:37)
[2022-09-27] MEDS: Acetaminophen/Codeine 30-300mg Tablet PO PRN ×3 (05:09→21:39)
[2022-09-27] MEDS: GUAIFENESIN SF SOLN 200 MG/10 ML UDCUP PO PRN (05:09)
[2022-09-27 06:58] LABS: #Basophils 0.1 thou/uL (0.0-0.2); #Eosinphils 0.4 thou/uL (0.0-0.7); #Monocytes 1.4 thou/uL (0.11-0.59); %Basophils 0.8 % (0.0-1.0); %Eosinophils 2.7 % (0.0-10.0); %Monocytes 9.4 % (0.0-10.0); %Neutrophils 79.4 % (42.0-75.0); Hematocrit 36.2 % (42.0-52.0); Hemoglobin 11.4 g/dL (14.0-18.0); Mean Corpuscular HGB CONC 31.5 g/dL (32.0-36.0); Mean Corpuscular Hemoglobin 29.1 pg (27.0-31.0); Mean Platelet Volume 8.5 fL (7.4-10.4); Platelet Count 676 10x3/uL (130-400); RBC Distribution Width 14.4 % (11.5-14.5); Red Blood Cell (RBC) Count 3.92 mill/uL (4.70-6.10); White Blood Cell (WBC) Count 15.1 10x3/uL (4.8-10.8)
[2022-09-27 07:01] LABS: Mean Corpuscular Volume 92.3 fl (78.0-98.0)
[2022-09-27 07:59] LABS: ALT (SGPT) 49 U/L (8-55); AST (SGOT) 59 U/L (5-34); Albumin 2.7 g/dL (3.5-5.0); Alkaline Phosphatase 432 U/L (40-110); Anion Gap 14 mmol/L (10-20); BUN (Urea Nitrogen) 10 mg/dL (8.9-20.6); Bilirubin, Direct 0.6 mg/dL (0.1-0.3); Calc. Creatinine Clearance 173 mL/min (70-130); Calcium 9.1 mg/dL (7.8-10.44); Carbon Dioxide 24 mmol/L (22-29); Chloride 96 mmol/L (98-107); Estimated GFR 137; Glucose 122 mg/dL (70-105); Potassium 4.7 mmol/L (3.5-5.1); Protein, Total 7.5 g/dL (6.0-8.3); Sodium 129 mmol/L (136-145)
[2022-09-27] MEDS: Benzonatate 100 MG CAP PO SCH ×3 (08:31→21:40)
[2022-09-27] MEDS: Ethambutol HCl 400 MG TAB PO SCH (08:31)
[2022-09-27] MEDS: guaiFENesin ER 600 MG TAB PO SCH ×2 (08:32→21:39)
[2022-09-27] MEDS: Isoniazid 100 MG TAB PO SCH (08:32)
[2022-09-27] MEDS: Pregabalin 75 MG CAP PO SCH ×2 (08:32→21:39)
[2022-09-27] MEDS: Polyethylene Glycol 3350 17 GM Packet PO SCH (08:32)
[2022-09-27] MEDS: pyridOXINE 50 MG (B6) TAB PO SCH (08:33)
[2022-09-27] MEDS: Rifampin 300 MG CAP PO SCH (08:33)
[2022-09-27] MEDS: Pyrazinamide 500 MG TAB PO SCH (08:33)
[2022-09-27] MEDS ORDERED: Sodium Bicarbonate 2.5 MEQ/5 ML VIAL ONE (11:15)
[2022-09-27] MEDS: HYDROmorphone/PF 10 MG in Sodium Chloride 0.9% 99 ML IVPB PRN (17:10)
[2022-09-28] MEDS: GUAIFENESIN SF SOLN 200 MG/10 ML UDCUP PO PRN ×4 (04:59→18:36)
[2022-09-28] MEDS: Pyrazinamide 500 MG TAB PO SCH (07:59)
[2022-09-28] MEDS: Benzonatate 100 MG CAP PO SCH ×3 (07:59→21:07)
[2022-09-28] MEDS: Isoniazid 100 MG TAB PO SCH (07:59)
[2022-09-28] MEDS: guaiFENesin ER 600 MG TAB PO SCH ×2 (07:59→21:07)
[2022-09-28] MEDS: Ethambutol HCl 400 MG TAB PO SCH (07:59)
[2022-09-28] MEDS: Rifampin 300 MG CAP PO SCH (07:59)
[2022-09-28] MEDS: pyridOXINE 50 MG (B6) TAB PO SCH (07:59)
[2022-09-28] MEDS: Pregabalin 75 MG CAP PO SCH ×2 (08:00→21:07)
[2022-09-28] MEDS: Polyethylene Glycol 3350 17 GM Packet PO SCH (08:03)
[2022-09-28] MEDS: Acetaminophen/Codeine 30-300mg Tablet PO PRN ×3 (09:28→21:06)
[2022-09-28] MEDS: Melatonin 3 MG TAB PO PRN (23:18)
[2022-09-29] MEDS: Acetaminophen/Codeine 30-300mg Tablet PO PRN ×2 (02:34→09:44)
[2022-09-29] MEDS: GUAIFENESIN SF SOLN 200 MG/10 ML UDCUP PO PRN ×2 (02:34→14:55)
[2022-09-29] MEDS: HYDROmorphone/PF 10 MG in Sodium Chloride 0.9% 99 ML IVPB PRN (03:01)
[2022-09-29 05:45] LABS: #Basophils 0.1 thou/uL (0.0-0.2); #Eosinphils 0.4 thou/uL (0.0-0.7); #Monocytes 1.3 thou/uL (0.11-0.59); #Neutrophils 10.3 thou/uL (1.40-6.50); %Basophils 0.7 % (0.0-1.0); %Eosinophils 2.8 % (0.0-10.0); %Lymphocytes 9.2 % (21.0-51.0); %Monocytes 9.9 % (0.0-10.0); %Neutrophils 76.7 % (42.0-75.0); Hematocrit 32.4 % (42.0-52.0); Hemoglobin 10.6 g/dL (14.0-18.0); Mean Corpuscular HGB CONC 32.7 g/dL (32.0-36.0); Mean Corpuscular Hemoglobin 29.5 pg (27.0-31.0); Mean Corpuscular Volume 90.3 fl (78.0-98.0); Mean Platelet Volume 8.2 fL (7.4-10.4); Platelet Count 646 10x3/uL (130-400); RBC Distribution Width 13.9 % (11.5-14.5); Red Blood Cell (RBC) Count 3.59 mill/uL (4.70-6.10); White Blood Cell (WBC) Count 13.5 10x3/uL (4.8-10.8)
[2022-09-29 06:08] LABS: ALT (SGPT) 42 U/L (8-55); AST (SGOT) 42 U/L (5-34); Albumin 2.8 g/dL (3.5-5.0); Alkaline Phosphatase 322 U/L (40-110); Anion Gap 12 mmol/L (10-20); BUN (Urea Nitrogen) 11 mg/dL (8.9-20.6); Bilirubin, Total 0.7 mg/dL (0.2-1.2); Calc. Creatinine Clearance 170 mL/min (70-130); Calcium 8.9 mg/dL (7.8-10.44); Carbon Dioxide 27 mmol/L (22-29); Chloride 98 mmol/L (98-107); Estimated GFR 136; Globulin 4.4 g/dL (2.4-3.5); Glucose 149 mg/dL (70-105); Potassium 3.5 mmol/L (3.5-5.1); Protein, Total 7.2 g/dL (6.0-8.3); Sodium 133 mmol/L (136-145)
[2022-09-29] MEDS ORDERED: Magnesium 2 GM/50 ML(in water) 2 GM in Premix Bag 1 BAG IVPB SCH (08:00)
[2022-09-29] MEDS ORDERED: Potassium Chloride 20 MEQ TAB PO SCH (08:00)
[2022-09-29] MEDS: Pregabalin 75 MG CAP PO SCH ×2 (09:43→22:04)
[2022-09-29] MEDS: Rifampin 300 MG CAP PO SCH (09:43)
[2022-09-29] MEDS: Benzonatate 100 MG CAP PO SCH ×3 (09:44→22:03)
[2022-09-29] MEDS: pyridOXINE 50 MG (B6) TAB PO SCH (09:44)
[2022-09-29] MEDS: guaiFENesin ER 600 MG TAB PO SCH ×2 (09:44→22:03)
[2022-09-29] MEDS: Polyethylene Glycol 3350 17 GM Packet PO SCH ×2 (09:45→09:47)
[2022-09-29] MEDS: Pyrazinamide 500 MG TAB PO SCH (09:46)
[2022-09-29] MEDS: Isoniazid 100 MG TAB PO SCH (09:46)
[2022-09-29] MEDS: Ethambutol HCl 400 MG TAB PO SCH (09:46)
[2022-09-29] MEDS: oxyCODONE 5 MG TAB PO PRN ×2 (15:57→22:11)
[2022-09-29] MEDS ORDERED: Acetaminophen 325 MG TAB PO SCH ×2 (16:00→18:00)
[2022-09-29] MEDS ORDERED: Ketamine 500 MG in Sodium Chloride 0.9% 500 ML IVPB SCH (16:30)
[2022-09-29] MEDS: Ketorolac Tromethamine 30 MG/ML VIAL IVP SCH ×2 (18:08→23:10)
[2022-09-29] MEDS: Acetaminophen 325 MG TAB PO SCH (22:05)
[2022-09-30] MEDS: Acetaminophen 325 MG TAB PO SCH ×4 (03:18→20:34)
[2022-09-30] MEDS: oxyCODONE 5 MG TAB PO PRN ×6 (03:19→21:44)
[2022-09-30] MEDS: Ketorolac Tromethamine 30 MG/ML VIAL IVP SCH ×3 (06:11→18:04)
[2022-09-30] MEDS: Benzonatate 100 MG CAP PO SCH ×3 (09:00→20:34)
[2022-09-30] MEDS: Rifampin 300 MG CAP PO SCH (09:00)
[2022-09-30] MEDS: guaiFENesin ER 600 MG TAB PO SCH ×2 (09:00→20:33)
[2022-09-30] MEDS: Pregabalin 75 MG CAP PO SCH ×2 (09:01→20:35)
[2022-09-30] MEDS: pyridOXINE 50 MG (B6) TAB PO SCH (09:01)
[2022-09-30] MEDS: Pyrazinamide 500 MG TAB PO SCH (09:02)
[2022-09-30] MEDS: Isoniazid 100 MG TAB PO SCH (09:02)
[2022-09-30] MEDS: Ethambutol HCl 400 MG TAB PO SCH (09:02)
[2022-09-30] MEDS: Polyethylene Glycol 3350 17 GM Packet PO SCH (09:03)
[2022-09-30] MEDS: GUAIFENESIN SF SOLN 200 MG/10 ML UDCUP PO PRN (15:04)
[2022-09-30] MEDS: HYDROmorphone 0.5 MG/0.5 ML SYRINGE SLOW IVP PRN ×2 (16:10→23:44)
[2022-10-01] MEDS: Ketorolac Tromethamine 30 MG/ML VIAL IVP SCH ×2 (00:30→06:42)
[2022-10-01] MEDS: HYDROmorphone/PF 10 MG in Sodium Chloride 0.9% 99 ML IVPB PRN ×2 (01:46→22:18)
[2022-10-01] MEDS: Acetaminophen 325 MG TAB PO SCH ×4 (03:40→21:15)
[2022-10-01 06:37] LABS: #Basophils 0.1 thou/uL (0.0-0.2); #Eosinphils 0.2 thou/uL (0.0-0.7); #Monocytes 1.3 thou/uL (0.11-0.59); #Neutrophils 10.2 thou/uL (1.40-6.50); %Basophils 0.7 % (0.0-1.0); %Eosinophils 1.5 % (0.0-10.0); %Lymphocytes 9.9 % (21.0-51.0); %Monocytes 10.1 % (0.0-10.0); %Neutrophils 77.2 % (42.0-75.0); Hematocrit 30.2 % (42.0-52.0); Hemoglobin 9.8 g/dL (14.0-18.0); Mean Corpuscular HGB CONC 32.5 g/dL (32.0-36.0); Mean Corpuscular Hemoglobin 29.5 pg (27.0-31.0); Mean Platelet Volume 8.6 fL (7.4-10.4); Platelet Count 702 10x3/uL (130-400); RBC Distribution Width 14.2 % (11.5-14.5); Red Blood Cell (RBC) Count 3.32 mill/uL (4.70-6.10); White Blood Cell (WBC) Count 13.3 10x3/uL (4.8-10.8)
[2022-10-01 07:03] LABS: Anion Gap 10 mmol/L (10-20); BUN (Urea Nitrogen) 14 mg/dL (8.9-20.6); Calc. Creatinine Clearance 178 mL/min (70-130); Calcium 8.8 mg/dL (7.8-10.44); Carbon Dioxide 25 mmol/L (22-29); Chloride 103 mmol/L (98-107); Estimated GFR 138; Glucose 111 mg/dL (70-105); Potassium 3.5 mmol/L (3.5-5.1); Sodium 134 mmol/L (136-145)
[2022-10-01] MEDS ORDERED: Potassium Chloride 20 MEQ TAB PO SCH (08:00)
[2022-10-01] MEDS: Pregabalin 75 MG CAP PO SCH ×2 (09:15→21:18)
[2022-10-01] MEDS: guaiFENesin ER 600 MG TAB PO SCH ×2 (09:15→21:14)
[2022-10-01] MEDS: Benzonatate 100 MG CAP PO SCH ×3 (09:15→21:15)
[2022-10-01] MEDS: Rifampin 300 MG CAP PO SCH (09:16)
[2022-10-01] MEDS: pyridOXINE 50 MG (B6) TAB PO SCH (09:16)
[2022-10-01] MEDS: Polyethylene Glycol 3350 17 GM Packet PO SCH (09:17)
[2022-10-01] MEDS: Isoniazid 100 MG TAB PO SCH (09:18)
[2022-10-01] MEDS: Ethambutol HCl 400 MG TAB PO SCH (09:18)
[2022-10-01] MEDS: Pyrazinamide 500 MG TAB PO SCH (09:18)
[2022-10-01] MEDS: GUAIFENESIN SF SOLN 200 MG/10 ML UDCUP PO PRN (16:57)
[2022-10-01] MEDS ORDERED: Sodium Chloride 0.9% 500 ML IV SCH (23:45)
[2022-10-02] MEDS: Acetaminophen 325 MG TAB PO SCH ×4 (03:34→21:54)
[2022-10-02 07:06] LABS: #Basophils 0.1 thou/uL (0.0-0.2); #Eosinphils 0.2 thou/uL (0.0-0.7); #Monocytes 1.3 thou/uL (0.11-0.59); #Neutrophils 8.7 thou/uL (1.40-6.50); %Basophils 0.9 % (0.0-1.0); %Eosinophils 1.8 % (0.0-10.0); %Lymphocytes 11.3 % (21.0-51.0); %Monocytes 11.3 % (0.0-10.0); %Neutrophils 74.3 % (42.0-75.0); Hematocrit 32.8 % (42.0-52.0); Hemoglobin 10.6 g/dL (14.0-18.0); Mean Corpuscular HGB CONC 32.3 g/dL (32.0-36.0); Mean Corpuscular Hemoglobin 29.1 pg (27.0-31.0); Mean Corpuscular Volume 90.1 fl (78.0-98.0); Mean Platelet Volume 8.3 fL (7.4-10.4); Platelet Count 666 10x3/uL (130-400); RBC Distribution Width 14.3 % (11.5-14.5); Red Blood Cell (RBC) Count 3.64 mill/uL (4.70-6.10); White Blood Cell (WBC) Count 11.7 10x3/uL (4.8-10.8)
[2022-10-02 07:35] LABS: ALT (SGPT) 34 U/L (8-55); AST (SGOT) 31 U/L (5-34); Albumin 2.8 g/dL (3.5-5.0); Alkaline Phosphatase 245 U/L (40-110); Anion Gap 11 mmol/L (10-20); BUN (Urea Nitrogen) 10 mg/dL (8.9-20.6); Bilirubin, Total 0.7 mg/dL (0.2-1.2); Calc. Creatinine Clearance 174 mL/min (70-130); Carbon Dioxide 26 mmol/L (22-29); Chloride 100 mmol/L (98-107); Estimated GFR 136; Globulin 4.4 g/dL (2.4-3.5); Glucose 96 mg/dL (70-105); Potassium 3.9 mmol/L (3.5-5.1); Protein, Total 7.2 g/dL (6.0-8.3); Sodium 133 mmol/L (136-145)
[2022-10-02] MEDS: Ethambutol HCl 400 MG TAB PO SCH (08:50)
[2022-10-02] MEDS: Rifampin 300 MG CAP PO SCH (08:51)
[2022-10-02] MEDS: Polyethylene Glycol 3350 17 GM Packet PO SCH (08:51)
[2022-10-02] MEDS: guaiFENesin ER 600 MG TAB PO SCH ×2 (08:51→21:52)
[2022-10-02] MEDS: Pyrazinamide 500 MG TAB PO SCH (08:51)
[2022-10-02] MEDS: Isoniazid 100 MG TAB PO SCH (08:51)
[2022-10-02] MEDS: Pregabalin 75 MG CAP PO SCH ×2 (08:52→21:52)
[2022-10-02] MEDS: Benzonatate 100 MG CAP PO SCH ×3 (08:52→21:52)
[2022-10-02] MEDS: pyridOXINE 50 MG (B6) TAB PO SCH (08:52)
[2022-10-02] MEDS: GUAIFENESIN SF SOLN 200 MG/10 ML UDCUP PO PRN (13:58)
[2022-10-02] MEDS: HYDROmorphone/PF 10 MG in Sodium Chloride 0.9% 99 ML IVPB PRN (21:57)
[2022-10-03] MEDS ORDERED: Ibuprofen 200 MG TAB PO PRN (00:09)
[2022-10-03] MEDS ORDERED: Sodium Chloride 0.9% 500 ML IV SCH (00:15)
[2022-10-03] MEDS: Acetaminophen 325 MG TAB PO SCH ×4 (02:46→20:20)
[2022-10-03] MEDS: Rifampin 300 MG CAP PO SCH (09:04)
[2022-10-03] MEDS: pyridOXINE 50 MG (B6) TAB PO SCH (09:04)
[2022-10-03] MEDS: Polyethylene Glycol 3350 17 GM Packet PO SCH (09:04)
[2022-10-03] MEDS: guaiFENesin ER 600 MG TAB PO SCH ×2 (09:05→20:19)
[2022-10-03] MEDS: Pyrazinamide 500 MG TAB PO SCH (09:05)
[2022-10-03] MEDS: Isoniazid 100 MG TAB PO SCH (09:05)
[2022-10-03] MEDS: Ethambutol HCl 400 MG TAB PO SCH (09:05)
[2022-10-03] MEDS: Pregabalin 75 MG CAP PO SCH ×2 (09:05→20:20)
[2022-10-03] MEDS: Benzonatate 100 MG CAP PO SCH ×3 (09:06→20:19)
[2022-10-03] MEDS: GUAIFENESIN SF SOLN 200 MG/10 ML UDCUP PO PRN (14:22)
[2022-10-03] MEDS ORDERED: Lactated Ringer's 500 ML IV SCH (21:15)
[2022-10-04] MEDS: HYDROmorphone/PF 10 MG in Sodium Chloride 0.9% 99 ML IVPB PRN (00:21)
[2022-10-04 01:33] LABS: Phosphorus 4.6 mg/dL (2.3-4.7)
[2022-10-04 01:35] LABS: Anion Gap 16 mmol/L (10-20); BUN (Urea Nitrogen) 9 mg/dL (8.9-20.6); Calc. Creatinine Clearance 151 mL/min (70-130); Calcium 9.4 mg/dL (7.8-10.44); Carbon Dioxide 25 mmol/L (22-29); Chloride 98 mmol/L (98-107); Estimated GFR 130; Glucose 97 mg/dL (70-105); Magnesium 1.9 mg/dL (1.6-2.6); Potassium 3.8 mmol/L (3.5-5.1); Sodium 135 mmol/L (136-145)
[2022-10-04] MEDS ORDERED: Lactated Ringer's 500 ML IV SCH (02:30)
[2022-10-04] MEDS: Acetaminophen 325 MG TAB PO SCH ×4 (03:29→20:44)
[2022-10-04] MEDS: GUAIFENESIN SF SOLN 200 MG/10 ML UDCUP PO PRN ×2 (03:38→18:14)
[2022-10-04] MEDS ORDERED: Piperacillin/Tazobactam 3.375 GM in Sodium Chloride 0.9% 100 ML IVPB SCH ×2 (08:00→08:15)
[2022-10-04] MEDS ORDERED: Magnesium 2 GM/50 ML(in water) 2 GM in Premix Bag 1 BAG IVPB SCH (08:00)
[2022-10-04 08:33] LABS: #Basophils 0.1 thou/uL (0.0-0.2); #Eosinphils 0.1 thou/uL (0.0-0.7); #Monocytes 1.5 thou/uL (0.11-0.59); %Basophils 0.9 % (0.0-1.0); %Lymphocytes 10.8 % (21.0-51.0); %Monocytes 11.1 % (0.0-10.0); %Neutrophils 75.9 % (42.0-75.0); Hematocrit 39.2 % (42.0-52.0); Hemoglobin 12.6 g/dL (14.0-18.0); Mean Corpuscular HGB CONC 32.1 g/dL (32.0-36.0); Mean Corpuscular Hemoglobin 29.3 pg (27.0-31.0); Mean Corpuscular Volume 91.2 fl (78.0-98.0); Mean Platelet Volume 8.2 fL (7.4-10.4); Platelet Count 669 10x3/uL (130-400); RBC Distribution Width 14.1 % (11.5-14.5); White Blood Cell (WBC) Count 13.2 10x3/uL (4.8-10.8)
[2022-10-04 08:56] LABS: ALT (SGPT) 39 U/L (8-55); AST (SGOT) 39 U/L (5-34); Albumin 3.2 g/dL (3.5-5.0); Alkaline Phosphatase 244 U/L (40-110); Anion Gap 15 mmol/L (10-20); BUN (Urea Nitrogen) 7 mg/dL (8.9-20.6); Bilirubin, Total 0.7 mg/dL (0.2-1.2); Calc. Creatinine Clearance 153 mL/min (70-130); Calcium 9.8 mg/dL (7.8-10.44); Carbon Dioxide 23 mmol/L (22-29); Chloride 98 mmol/L (98-107); Estimated GFR 131; Globulin 4.8 g/dL (2.4-3.5); Glucose 95 mg/dL (70-105); Potassium 4.3 mmol/L (3.5-5.1); Sodium 132 mmol/L (136-145)
[2022-10-04] MEDS: Benzonatate 100 MG CAP PO SCH ×3 (09:05→20:44)
[2022-10-04] MEDS: Pregabalin 75 MG CAP PO SCH ×2 (09:05→20:43)
[2022-10-04] MEDS: guaiFENesin ER 600 MG TAB PO SCH ×2 (09:05→20:44)
[2022-10-04] MEDS: pyridOXINE 50 MG (B6) TAB PO SCH (09:05)
[2022-10-04] MEDS: Polyethylene Glycol 3350 17 GM Packet PO SCH (09:06)
[2022-10-04] MEDS: Pyrazinamide 500 MG TAB PO SCH (10:28)
[2022-10-04] MEDS: Ethambutol HCl 400 MG TAB PO SCH (10:28)
[2022-10-04] MEDS: Rifampin 300 MG CAP PO SCH (10:29)
[2022-10-04 10:53] LABS: SARS-CoV-2 NAA Rapid Test Not Detected (NotDetected)
[2022-10-04] MEDS: Linezolid 600 MG in Premix Bag 1 BAG IVPB SCH ×2 (11:33→20:45)
[2022-10-04] MEDS: Isoniazid 100 MG TAB PO SCH (11:34)
[2022-10-04] MEDS: Ondansetron PF 4 MG/2 ML Vial IVP PRN (14:38)
[2022-10-04] MEDS: Piperacillin/Tazobactam 3.375 GM in Sodium Chloride 0.9% 100 ML IVPB SCH ×2 (15:08→23:17)
[2022-10-05] MEDS: HYDROmorphone/PF 10 MG in Sodium Chloride 0.9% 99 ML IVPB PRN (00:12)
[2022-10-05] MEDS: GUAIFENESIN SF SOLN 200 MG/10 ML UDCUP PO PRN ×3 (04:03→17:03)
[2022-10-05] MEDS: Acetaminophen 325 MG TAB PO SCH ×2 (04:03→09:03)
[2022-10-05 05:46] LABS: #Basophils 0.1 thou/uL (0.0-0.2); #Eosinphils 0.3 thou/uL (0.0-0.7); #Monocytes 0.8 thou/uL (0.11-0.59); #Neutrophils 7.4 thou/uL (1.40-6.50); %Basophils 1.1 % (0.0-1.0); %Eosinophils 2.7 % (0.0-10.0); %Lymphocytes 8.5 % (21.0-51.0); %Monocytes 8.6 % (0.0-10.0); %Neutrophils 78.8 % (42.0-75.0); Mean Corpuscular HGB CONC 33.3 g/dL (32.0-36.0); Mean Corpuscular Hemoglobin 29.1 pg (27.0-31.0); Mean Platelet Volume 8.3 fL (7.4-10.4); RBC Distribution Width 13.9 % (11.5-14.5); Red Blood Cell (RBC) Count 3.78 mill/uL (4.70-6.10); White Blood Cell (WBC) Count 9.3 10x3/uL (4.8-10.8)
[2022-10-05] MEDS: Piperacillin/Tazobactam 3.375 GM in Sodium Chloride 0.9% 100 ML IVPB SCH ×3 (05:52→23:17)
[2022-10-05 05:53] LABS: Mean Corpuscular Volume 87.3 fl (78.0-98.0); Platelet Count 557 10x3/uL (130-400)
[2022-10-05 06:13] LABS: ALT (SGPT) 35 U/L (8-55); AST (SGOT) 38 U/L (5-34); Albumin 2.9 g/dL (3.5-5.0); Alkaline Phosphatase 217 U/L (40-110); Anion Gap 14 mmol/L (10-20); BUN (Urea Nitrogen) 9 mg/dL (8.9-20.6); Bilirubin, Total 0.7 mg/dL (0.2-1.2); Calc. Creatinine Clearance 161 mL/min (70-130); Calcium 9.4 mg/dL (7.8-10.44); Carbon Dioxide 25 mmol/L (22-29); Chloride 99 mmol/L (98-107); Estimated GFR 133; Globulin 4.4 g/dL (2.4-3.5); Glucose 106 mg/dL (70-105); Potassium 4.1 mmol/L (3.5-5.1); Protein, Total 7.3 g/dL (6.0-8.3); Sodium 134 mmol/L (136-145)
[2022-10-05] MEDS: pyridOXINE 50 MG (B6) TAB PO SCH (09:03)
[2022-10-05] MEDS: guaiFENesin ER 600 MG TAB PO SCH ×2 (09:03→20:04)
[2022-10-05] MEDS: Benzonatate 100 MG CAP PO SCH ×3 (09:04→20:04)
[2022-10-05] MEDS: Polyethylene Glycol 3350 17 GM Packet PO SCH (09:04)
[2022-10-05] MEDS: Pregabalin 75 MG CAP PO SCH ×2 (09:04→20:04)
[2022-10-05] MEDS: Pyrazinamide 500 MG TAB PO SCH (09:04)
[2022-10-05] MEDS: Ethambutol HCl 400 MG TAB PO SCH (09:05)
[2022-10-05] MEDS: Rifampin 300 MG CAP PO SCH (09:05)
[2022-10-05] MEDS: Isoniazid 100 MG TAB PO SCH (09:05)
[2022-10-05] MEDS: Linezolid 600 MG in Premix Bag 1 BAG IVPB SCH ×2 (09:06→20:03)
[2022-10-05] MEDS: Ibuprofen 200 MG TAB PO SCH ×3 (11:23→23:17)
[2022-10-05] MEDS: Acetaminophen/Codeine 30-300mg Tablet PO PRN ×3 (11:23→23:16)
[2022-10-05] MEDS ORDERED: Sodium Bicarbonate 2.5 MEQ/5 ML VIAL ONE (13:25)
[2022-10-05] MEDS ORDERED: Lidocaine 1% PF 5 ML VIAL ONE (13:25)
[2022-10-06] MEDS: HYDROmorphone/PF 10 MG in Sodium Chloride 0.9% 99 ML IVPB PRN ×2 (00:38→21:21)
[2022-10-06] MEDS: Piperacillin/Tazobactam 3.375 GM in Sodium Chloride 0.9% 100 ML IVPB SCH ×3 (05:26→23:58)
[2022-10-06] MEDS: Ibuprofen 200 MG TAB PO SCH ×4 (05:26→23:58)
[2022-10-06] MEDS: pyridOXINE 50 MG (B6) TAB PO SCH (08:40)
[2022-10-06] MEDS: Pyrazinamide 500 MG TAB PO SCH (08:41)
[2022-10-06] MEDS: Rifampin 300 MG CAP PO SCH (08:41)
[2022-10-06] MEDS: Pregabalin 75 MG CAP PO SCH ×2 (08:41→21:18)
[2022-10-06] MEDS: Benzonatate 100 MG CAP PO SCH ×3 (08:42→21:18)
[2022-10-06] MEDS: Isoniazid 100 MG TAB PO SCH (08:42)
[2022-10-06] MEDS: guaiFENesin ER 600 MG TAB PO SCH ×2 (08:42→21:18)
[2022-10-06] MEDS: Polyethylene Glycol 3350 17 GM Packet PO SCH (08:42)
[2022-10-06] MEDS: Ethambutol HCl 400 MG TAB PO SCH (08:42)
[2022-10-06] MEDS: Linezolid 600 MG in Premix Bag 1 BAG IVPB SCH ×2 (08:43→21:20)
[2022-10-06] MEDS: Acetaminophen/Codeine 30-300mg Tablet PO PRN ×3 (09:24→21:19)
[2022-10-06] MEDS: GUAIFENESIN SF SOLN 200 MG/10 ML UDCUP PO PRN (14:07)
[2022-10-06] MEDS: Ondansetron PF 4 MG/2 ML Vial IVP PRN (14:30)
[2022-10-07] MEDS: Ibuprofen 200 MG TAB PO SCH ×4 (06:08→23:41)
[2022-10-07] MEDS: Piperacillin/Tazobactam 3.375 GM in Sodium Chloride 0.9% 100 ML IVPB SCH ×3 (06:08→23:41)
[2022-10-07] MEDS: Polyethylene Glycol 3350 17 GM Packet PO SCH (08:22)
[2022-10-07] MEDS: Ethambutol HCl 400 MG TAB PO SCH (08:25)
[2022-10-07] MEDS: GUAIFENESIN SF SOLN 200 MG/10 ML UDCUP PO PRN ×3 (08:25→16:24)
[2022-10-07] MEDS: guaiFENesin ER 600 MG TAB PO SCH ×2 (08:25→21:43)
[2022-10-07] MEDS: pyridOXINE 50 MG (B6) TAB PO SCH (08:26)
[2022-10-07] MEDS: Benzonatate 100 MG CAP PO SCH ×3 (08:26→21:42)
[2022-10-07] MEDS: Pregabalin 75 MG CAP PO SCH ×2 (08:26→21:42)
[2022-10-07] MEDS: Isoniazid 100 MG TAB PO SCH (08:26)
[2022-10-07] MEDS: Acetaminophen/Codeine 30-300mg Tablet PO PRN ×3 (08:26→21:42)
[2022-10-07] MEDS: Pyrazinamide 500 MG TAB PO SCH (08:27)
[2022-10-07] MEDS: Linezolid 600 MG in Premix Bag 1 BAG IVPB SCH ×2 (08:27→21:39)
[2022-10-07] MEDS: Rifampin 300 MG CAP PO SCH (08:27)
[2022-10-07] MEDS: HYDROmorphone/PF 10 MG in Sodium Chloride 0.9% 99 ML IVPB PRN (21:41)
[2022-10-07] MEDS: Ondansetron PF 4 MG/2 ML Vial IVP PRN (23:42)
[2022-10-08] MEDS: GUAIFENESIN SF SOLN 200 MG/10 ML UDCUP PO PRN ×2 (04:13→08:24)
[2022-10-08] MEDS: Piperacillin/Tazobactam 3.375 GM in Sodium Chloride 0.9% 100 ML IVPB SCH ×2 (06:07→13:57)
[2022-10-08] MEDS: Acetaminophen/Codeine 30-300mg Tablet PO PRN ×4 (06:08→19:45)
[2022-10-08] MEDS: Ibuprofen 200 MG TAB PO SCH ×2 (06:08→11:55)
[2022-10-08] MEDS: Linezolid 600 MG in Premix Bag 1 BAG IVPB SCH (08:24)
[2022-10-08] MEDS: Benzonatate 100 MG CAP PO SCH ×3 (08:25→19:34)
[2022-10-08] MEDS: Ethambutol HCl 400 MG TAB PO SCH (08:25)
[2022-10-08] MEDS: Isoniazid 100 MG TAB PO SCH (08:25)
[2022-10-08] MEDS: pyridOXINE 50 MG (B6) TAB PO SCH (08:25)
[2022-10-08] MEDS: Pregabalin 75 MG CAP PO SCH ×2 (08:25→19:34)
[2022-10-08] MEDS: guaiFENesin ER 600 MG TAB PO SCH ×2 (08:25→19:34)
[2022-10-08] MEDS: Polyethylene Glycol 3350 17 GM Packet PO SCH (08:26)
[2022-10-08] MEDS: Rifampin 300 MG CAP PO SCH (08:26)
[2022-10-08] MEDS: Pyrazinamide 500 MG TAB PO SCH (10:27)
[2022-10-08] MEDS: Ondansetron PF 4 MG/2 ML Vial IVP PRN (19:17)
[2022-10-08] MEDS: HYDROmorphone/PF 10 MG in Sodium Chloride 0.9% 99 ML IVPB PRN (20:27)
[2022-10-09] MEDS: Acetaminophen/Codeine 30-300mg Tablet PO PRN ×4 (02:33→21:00)
[2022-10-09] MEDS: Melatonin 3 MG TAB PO PRN (02:34)
[2022-10-09 06:29] VITALS: BMI 18.4
[2022-10-09] MEDS: Rifampin 300 MG CAP PO SCH (08:46)
[2022-10-09] MEDS: Pregabalin 75 MG CAP PO SCH ×2 (08:46→20:58)
[2022-10-09] MEDS: guaiFENesin ER 600 MG TAB PO SCH ×2 (08:47→20:59)
[2022-10-09] MEDS: pyridOXINE 50 MG (B6) TAB PO SCH (08:47)
[2022-10-09] MEDS: Benzonatate 100 MG CAP PO SCH ×3 (08:47→20:59)
[2022-10-09] MEDS: Isoniazid 100 MG TAB PO SCH (08:47)
[2022-10-09] MEDS: Pyrazinamide 500 MG TAB PO SCH (08:47)
[2022-10-09] MEDS: Polyethylene Glycol 3350 17 GM Packet PO SCH (08:48)
[2022-10-09] MEDS: Ethambutol HCl 400 MG TAB PO SCH (08:48)
[2022-10-09] MEDS: HYDROmorphone/PF 10 MG in Sodium Chloride 0.9% 99 ML IVPB PRN (18:03)
[2022-10-10] MEDS: Acetaminophen/Codeine 30-300mg Tablet PO PRN ×4 (01:59→20:54)
[2022-10-10] MEDS ORDERED: Sodium Chloride 0.9% 500 ML IV SCH (02:45)
[2022-10-10] MEDS ORDERED: Acetaminophen 325 MG TAB PO SCH (02:45)
[2022-10-10] MEDS ORDERED: guaiFENesin/Codeine 200 mg/20 mg 10 ml Cup PO SCH (03:00)
[2022-10-10] MEDS ORDERED: Ketorolac Tromethamine 30 MG/ML VIAL IVP SCH (03:00)
[2022-10-10 03:21] LABS: #Basophils 0.1 thou/uL (0.0-0.2); #Eosinphils 0.2 thou/uL (0.0-0.7); #Monocytes 1.3 thou/uL (0.11-0.59); #Neutrophils 9.9 thou/uL (1.40-6.50); %Basophils 0.6 % (0.0-1.0); %Eosinophils 1.6 % (0.0-10.0); %Lymphocytes 6.2 % (21.0-51.0); %Monocytes 10.4 % (0.0-10.0); %Neutrophils 80.9 % (42.0-75.0); Hemoglobin 11.5 g/dL (14.0-18.0); Mean Corpuscular HGB CONC 32.9 g/dL (32.0-36.0); Mean Corpuscular Hemoglobin 29.3 pg (27.0-31.0); Mean Corpuscular Volume 89.1 fl (78.0-98.0); Mean Platelet Volume 8.1 fL (7.4-10.4); Platelet Count 407 10x3/uL (130-400); Red Blood Cell (RBC) Count 3.93 mill/uL (4.70-6.10); White Blood Cell (WBC) Count 12.2 10x3/uL (4.8-10.8)
[2022-10-10 04:04] LABS: ALT (SGPT) 41 U/L (8-55); AST (SGOT) 39 U/L (5-34); Alkaline Phosphatase 222 U/L (40-110); Anion Gap 18 mmol/L (10-20); BUN (Urea Nitrogen) 10 mg/dL (8.9-20.6); Bilirubin, Total 0.5 mg/dL (0.2-1.2); Calc. Creatinine Clearance 159 mL/min (70-130); Calcium 9.1 mg/dL (7.8-10.44); Carbon Dioxide 23 mmol/L (22-29); Chloride 98 mmol/L (98-107); Estimated GFR 132; Globulin 4.1 g/dL (2.4-3.5); Glucose 125 mg/dL (70-105); Lipase 29 U/L (8-78); Potassium 3.8 mmol/L (3.5-5.1); Protein, Total 7.1 g/dL (6.0-8.3); Sodium 135 mmol/L (136-145)
[2022-10-10] MEDS: Rifampin 300 MG CAP PO SCH (08:44)
[2022-10-10] MEDS: Pregabalin 75 MG CAP PO SCH ×2 (08:44→20:52)
[2022-10-10] MEDS: Benzonatate 100 MG CAP PO SCH ×3 (08:45→20:51)
[2022-10-10] MEDS: Multivitamin W/ Minerals 1 TAB PO SCH (08:45)
[2022-10-10] MEDS: guaiFENesin ER 600 MG TAB PO SCH ×2 (08:45→20:51)
[2022-10-10] MEDS: Polyethylene Glycol 3350 17 GM Packet PO SCH (08:46)
[2022-10-10] MEDS: Ethambutol HCl 400 MG TAB PO SCH (08:46)
[2022-10-10] MEDS: Isoniazid 100 MG TAB PO SCH (08:46)
[2022-10-10] MEDS: Pyrazinamide 500 MG TAB PO SCH (08:46)
[2022-10-10] MEDS: pyridOXINE 50 MG (B6) TAB PO SCH (08:57)
[2022-10-10] MEDS: HYDROmorphone/PF 10 MG in Sodium Chloride 0.9% 99 ML IVPB PRN (13:06)
[2022-10-11] MEDS ORDERED: guaiFENesin/Codeine 200 mg/20 mg 10 ml Cup PO SCH (02:00)
[2022-10-11] MEDS: Acetaminophen/Codeine 30-300mg Tablet PO PRN ×4 (02:03→21:00)
[2022-10-11] MEDS: HYDROmorphone/PF 10 MG in Sodium Chloride 0.9% 99 ML IVPB PRN ×2 (08:23→16:59)
[2022-10-11] MEDS: Pyrazinamide 500 MG TAB PO SCH (08:31)
[2022-10-11] MEDS: guaiFENesin ER 600 MG TAB PO SCH ×2 (08:32→20:59)
[2022-10-11] MEDS: Pregabalin 75 MG CAP PO SCH ×2 (08:32→20:59)
[2022-10-11] MEDS: Isoniazid 100 MG TAB PO SCH (08:32)
[2022-10-11] MEDS: Ethambutol HCl 400 MG TAB PO SCH (08:32)
[2022-10-11] MEDS: Polyethylene Glycol 3350 17 GM Packet PO SCH (08:32)
[2022-10-11] MEDS: Multivitamin W/ Minerals 1 TAB PO SCH (08:32)
[2022-10-11] MEDS: pyridOXINE 50 MG (B6) TAB PO SCH (08:32)
[2022-10-11] MEDS: Benzonatate 100 MG CAP PO SCH ×3 (08:32→20:58)
[2022-10-11] MEDS: Rifampin 300 MG CAP PO SCH (08:32)
[2022-10-11] MEDS ORDERED: Piperacillin/Tazobactam 3.375 GM in Sodium Chloride 0.9% 100 ML IVPB SCH (14:45)
[2022-10-11] MEDS: Linezolid 600 MG in Premix Bag 1 BAG IVPB SCH (16:20)
[2022-10-11] MEDS: Piperacillin/Tazobactam 3.375 GM in Sodium Chloride 0.9% 100 ML IVPB SCH (20:57)
[2022-10-12] MEDS: Acetaminophen/Codeine 30-300mg Tablet PO PRN ×2 (01:43→09:06)
[2022-10-12] MEDS: Linezolid 600 MG in Premix Bag 1 BAG IVPB SCH ×2 (02:27→15:44)
[2022-10-12] MEDS: Piperacillin/Tazobactam 3.375 GM in Sodium Chloride 0.9% 100 ML IVPB SCH ×3 (04:17→21:57)
[2022-10-12 08:11] LABS: #Basophils 0.1 thou/uL (0.0-0.2); #Eosinphils 0.3 thou/uL (0.0-0.7); #Monocytes 1.7 thou/uL (0.11-0.59); #Neutrophils 12.1 thou/uL (1.40-6.50); %Basophils 0.5 % (0.0-1.0); %Eosinophils 2.2 % (0.0-10.0); %Lymphocytes 6.5 % (21.0-51.0); %Monocytes 11.2 % (0.0-10.0); Hematocrit 35.3 % (42.0-52.0); Hemoglobin 11.6 g/dL (14.0-18.0); Mean Corpuscular HGB CONC 32.9 g/dL (32.0-36.0); Mean Corpuscular Hemoglobin 29.7 pg (27.0-31.0); Mean Corpuscular Volume 90.3 fl (78.0-98.0); Mean Platelet Volume 8.2 fL (7.4-10.4); Platelet Count 383 10x3/uL (130-400); Red Blood Cell (RBC) Count 3.91 mill/uL (4.70-6.10); White Blood Cell (WBC) Count 15.3 10x3/uL (4.8-10.8)
[2022-10-12 08:40] LABS: ALT (SGPT) 45 U/L (8-55); AST (SGOT) 48 U/L (5-34); Albumin 2.9 g/dL (3.5-5.0); Alkaline Phosphatase 200 U/L (40-110); Anion Gap 16 mmol/L (10-20); BUN (Urea Nitrogen) 7 mg/dL (8.9-20.6); Bilirubin, Total 0.6 mg/dL (0.2-1.2); Calc. Creatinine Clearance 159 mL/min (70-130); Calcium 9.1 mg/dL (7.8-10.44); Carbon Dioxide 22 mmol/L (22-29); Chloride 99 mmol/L (98-107); Estimated GFR 132; Globulin 4.1 g/dL (2.4-3.5); Glucose 116 mg/dL (70-105); Potassium 3.6 mmol/L (3.5-5.1); Sodium 133 mmol/L (136-145)
[2022-10-12] MEDS: Rifampin 300 MG CAP PO SCH (09:02)
[2022-10-12] MEDS: Benzonatate 100 MG CAP PO SCH ×3 (09:02→21:57)
[2022-10-12] MEDS: pyridOXINE 50 MG (B6) TAB PO SCH (09:02)
[2022-10-12] MEDS: Multivitamin W/ Minerals 1 TAB PO SCH (09:02)
[2022-10-12] MEDS: guaiFENesin ER 600 MG TAB PO SCH ×2 (09:02→21:58)
[2022-10-12] MEDS: Ethambutol HCl 400 MG TAB PO SCH (09:03)
[2022-10-12] MEDS: Pyrazinamide 500 MG TAB PO SCH (09:03)
[2022-10-12] MEDS: Pregabalin 75 MG CAP PO SCH ×2 (09:03→21:58)
[2022-10-12] MEDS: Isoniazid 100 MG TAB PO SCH (09:03)
[2022-10-12] MEDS: Polyethylene Glycol 3350 17 GM Packet PO SCH (09:07)
[2022-10-12] MEDS: Ondansetron PF 4 MG/2 ML Vial IVP PRN (09:38)
[2022-10-12] MEDS ORDERED: Acetaminophen 325 MG TAB PO SCH (12:00)
[2022-10-12] MEDS ORDERED: Ibuprofen 200 MG TAB PO SCH (12:00)
[2022-10-12] MEDS ORDERED: traMADol HCl 50 MG TAB PO SCH (12:00)
[2022-10-12] MEDS: GUAIFENESIN SF SOLN 200 MG/10 ML UDCUP PO PRN (14:38)
[2022-10-12] MEDS: Acetaminophen 325 MG TAB PO SCH ×2 (17:14→22:08)
[2022-10-12] MEDS: traMADol HCl 50 MG TAB PO SCH ×2 (17:15→22:07)
[2022-10-12] MEDS: Ibuprofen 200 MG TAB PO SCH ×2 (17:15→22:09)
[2022-10-12] MEDS: Melatonin 3 MG TAB PO PRN (22:15)
[2022-10-12] MEDS: HYDROmorphone/PF 10 MG in Sodium Chloride 0.9% 99 ML IVPB PRN (22:34)
[2022-10-13] MEDS: Linezolid 600 MG in Premix Bag 1 BAG IVPB SCH ×2 (03:58→15:24)
[2022-10-13] MEDS: Piperacillin/Tazobactam 3.375 GM in Sodium Chloride 0.9% 100 ML IVPB SCH ×3 (03:59→20:41)
[2022-10-13] MEDS: Ibuprofen 200 MG TAB PO SCH ×3 (06:03→17:50)
[2022-10-13] MEDS: traMADol HCl 50 MG TAB PO SCH ×3 (06:04→17:50)
[2022-10-13] MEDS: Acetaminophen 325 MG TAB PO SCH ×3 (06:05→17:49)
[2022-10-13 06:40] LABS: #Basophils 0.1 thou/uL (0.0-0.2); #Eosinphils 0.4 thou/uL (0.0-0.7); #Monocytes 1.3 thou/uL (0.11-0.59); #Neutrophils 10.4 thou/uL (1.40-6.50); %Basophils 0.5 % (0.0-1.0); %Eosinophils 3.1 % (0.0-10.0); %Lymphocytes 5.7 % (21.0-51.0); %Neutrophils 80.3 % (42.0-75.0); Hematocrit 33.9 % (42.0-52.0); Hemoglobin 11.3 g/dL (14.0-18.0); Mean Corpuscular HGB CONC 33.3 g/dL (32.0-36.0); Mean Corpuscular Hemoglobin 28.9 pg (27.0-31.0); Mean Platelet Volume 8.2 fL (7.4-10.4); Platelet Count 356 10x3/uL (130-400); RBC Distribution Width 13.9 % (11.5-14.5); Red Blood Cell (RBC) Count 3.91 mill/uL (4.70-6.10)
[2022-10-13 06:45] LABS: Mean Corpuscular Volume 86.7 fl (78.0-98.0)
[2022-10-13 07:07] LABS: ALT (SGPT) 44 U/L (8-55); AST (SGOT) 49 U/L (5-34); Albumin 2.9 g/dL (3.5-5.0); Alkaline Phosphatase 205 U/L (40-110); Anion Gap 15 mmol/L (10-20); BUN (Urea Nitrogen) 8 mg/dL (8.9-20.6); Bilirubin, Total 0.5 mg/dL (0.2-1.2); Calc. Creatinine Clearance 152 mL/min (70-130); Calcium 9.1 mg/dL (7.8-10.44); Carbon Dioxide 23 mmol/L (22-29); Chloride 102 mmol/L (98-107); Estimated GFR 130; Globulin 3.8 g/dL (2.4-3.5); Glucose 129 mg/dL (70-105); Potassium 3.4 mmol/L (3.5-5.1); Protein, Total 6.7 g/dL (6.0-8.3); Sodium 137 mmol/L (136-145)
[2022-10-13] MEDS ORDERED: Potassium Chloride 20 MEQ TAB PO SCH (08:00)
[2022-10-13] MEDS: Benzonatate 100 MG CAP PO SCH ×3 (09:09→20:41)
[2022-10-13] MEDS: guaiFENesin ER 600 MG TAB PO SCH ×2 (09:10→20:41)
[2022-10-13] MEDS: Ethambutol HCl 400 MG TAB PO SCH (09:10)
[2022-10-13] MEDS: Isoniazid 100 MG TAB PO SCH (09:11)
[2022-10-13] MEDS: pyridOXINE 50 MG (B6) TAB PO SCH (09:11)
[2022-10-13] MEDS: Multivitamin W/ Minerals 1 TAB PO SCH (09:11)
[2022-10-13] MEDS: Polyethylene Glycol 3350 17 GM Packet PO SCH (09:11)
[2022-10-13] MEDS: Pregabalin 75 MG CAP PO SCH ×2 (09:11→20:41)
[2022-10-13] MEDS: Pyrazinamide 500 MG TAB PO SCH (09:12)
[2022-10-13] MEDS: Rifampin 300 MG CAP PO SCH (09:12)
[2022-10-13 12:15] LABS: Fungus Culture Final report (.)
[2022-10-13] MEDS: GUAIFENESIN SF SOLN 200 MG/10 ML UDCUP PO PRN ×2 (12:15→22:01)
[2022-10-13] MEDS: Ondansetron PF 4 MG/2 ML Vial IVP PRN (18:40)
[2022-10-13] MEDS: Melatonin 3 MG TAB PO PRN (22:01)
[2022-10-14] MEDS: Ibuprofen 200 MG TAB PO SCH ×4 (00:18→17:57)
[2022-10-14] MEDS: Acetaminophen 325 MG TAB PO SCH ×4 (00:19→17:57)
[2022-10-14] MEDS: traMADol HCl 50 MG TAB PO SCH ×4 (00:19→17:57)
[2022-10-14] MEDS: Linezolid 600 MG in Premix Bag 1 BAG IVPB SCH ×2 (03:19→15:48)
[2022-10-14] MEDS: Piperacillin/Tazobactam 3.375 GM in Sodium Chloride 0.9% 100 ML IVPB SCH (03:19)
[2022-10-14] MEDS: HYDROmorphone/PF 10 MG in Sodium Chloride 0.9% 99 ML IVPB PRN (05:32)
[2022-10-14 06:22] LABS: #Basophils 0.1 thou/uL (0.0-0.2); #Eosinphils 0.2 thou/uL (0.0-0.7); #Monocytes 1.9 thou/uL (0.11-0.59); #Neutrophils 14.7 thou/uL (1.40-6.50); %Basophils 0.5 % (0.0-1.0); %Eosinophils 1.3 % (0.0-10.0); %Lymphocytes 5.7 % (21.0-51.0); %Monocytes 10.7 % (0.0-10.0); %Neutrophils 81.3 % (42.0-75.0); Hematocrit 34.3 % (42.0-52.0); Hemoglobin 11.3 g/dL (14.0-18.0); Mean Corpuscular HGB CONC 32.9 g/dL (32.0-36.0); Mean Corpuscular Hemoglobin 29.5 pg (27.0-31.0); Mean Platelet Volume 8.3 fL (7.4-10.4); Platelet Count 364 10x3/uL (130-400); Red Blood Cell (RBC) Count 3.83 mill/uL (4.70-6.10); White Blood Cell (WBC) Count 18.1 10x3/uL (4.8-10.8)
[2022-10-14 06:31] LABS: Mean Corpuscular Volume 89.6 fl (78.0-98.0)
[2022-10-14 06:48] LABS: ALT (SGPT) 44 U/L (8-55); AST (SGOT) 42 U/L (5-34); Albumin 2.8 g/dL (3.5-5.0); Alkaline Phosphatase 187 U/L (40-110); Anion Gap 13 mmol/L (10-20); BUN (Urea Nitrogen) 7 mg/dL (8.9-20.6); Bilirubin, Total 0.6 mg/dL (0.2-1.2); Calc. Creatinine Clearance 164 mL/min (70-130); Calcium 9.3 mg/dL (7.8-10.44); Carbon Dioxide 24 mmol/L (22-29); Chloride 98 mmol/L (98-107); Estimated GFR 134; Globulin 3.5 g/dL (2.4-3.5); Glucose 102 mg/dL (70-105); Potassium 3.2 mmol/L (3.5-5.1); Protein, Total 6.3 g/dL (6.0-8.3); Sodium 132 mmol/L (136-145)
[2022-10-14] MEDS ORDERED: Potassium Chloride 20 MEQ TAB PO SCH (08:00)
[2022-10-14] MEDS: Benzonatate 100 MG CAP PO SCH ×3 (09:41→21:24)
[2022-10-14] MEDS: Ethambutol HCl 400 MG TAB PO SCH (09:42)
[2022-10-14] MEDS: guaiFENesin ER 600 MG TAB PO SCH ×2 (09:42→21:24)
[2022-10-14] MEDS: Multivitamin W/ Minerals 1 TAB PO SCH (09:43)
[2022-10-14] MEDS: Isoniazid 100 MG TAB PO SCH (09:43)
[2022-10-14] MEDS: Pregabalin 75 MG CAP PO SCH ×2 (09:43→21:24)
[2022-10-14] MEDS: Polyethylene Glycol 3350 17 GM Packet PO SCH (09:43)
[2022-10-14] MEDS: pyridOXINE 50 MG (B6) TAB PO SCH (09:45)
[2022-10-14] MEDS: Pyrazinamide 500 MG TAB PO SCH (09:45)
[2022-10-14] MEDS: GUAIFENESIN SF SOLN 200 MG/10 ML UDCUP PO PRN ×2 (09:46→21:23)
[2022-10-14] MEDS: Rifampin 300 MG CAP PO SCH (09:46)
[2022-10-14] MEDS ORDERED: Meropenem 1 GM in Sodium Chloride 0.9% 100 ML IVPB SCH ×2 (10:37→14:00)
[2022-10-14] MEDS: Ondansetron PF 4 MG/2 ML Vial IVP PRN (13:42)
[2022-10-14] MEDS: Melatonin 3 MG TAB PO PRN (21:23)
[2022-10-14] MEDS: Meropenem 1 GM in Sodium Chloride 0.9% 100 ML IVPB SCH (21:26)
[2022-10-15] MEDS: traMADol HCl 50 MG TAB PO SCH ×5 (00:09→23:12)
[2022-10-15] MEDS: Ibuprofen 200 MG TAB PO SCH ×5 (00:09→23:12)
[2022-10-15] MEDS: Acetaminophen 325 MG TAB PO SCH ×5 (00:10→22:33)
[2022-10-15] MEDS: Linezolid 600 MG in Premix Bag 1 BAG IVPB SCH ×2 (03:57→16:02)
[2022-10-15] MEDS: GUAIFENESIN SF SOLN 200 MG/10 ML UDCUP PO PRN ×3 (03:59→22:34)
[2022-10-15] MEDS: Meropenem 1 GM in Sodium Chloride 0.9% 100 ML IVPB SCH ×3 (05:34→20:58)
[2022-10-15 06:59] LABS: #Basophils 0.1 thou/uL (0.0-0.2); #Eosinphils 0.3 thou/uL (0.0-0.7); #Monocytes 2.3 thou/uL (0.11-0.59); #Neutrophils 18.3 thou/uL (1.40-6.50); %Basophils 0.4 % (0.0-1.0); %Eosinophils 1.2 % (0.0-10.0); %Monocytes 10.5 % (0.0-10.0); %Neutrophils 82.4 % (42.0-75.0); Hematocrit 35.2 % (42.0-52.0); Hemoglobin 11.7 g/dL (14.0-18.0); Mean Corpuscular HGB CONC 33.2 g/dL (32.0-36.0); Mean Corpuscular Hemoglobin 29.2 pg (27.0-31.0); Mean Corpuscular Volume 87.8 fl (78.0-98.0); Mean Platelet Volume 8.5 fL (7.4-10.4); Platelet Count 371 10x3/uL (130-400); RBC Distribution Width 14.1 % (11.5-14.5); Red Blood Cell (RBC) Count 4.01 mill/uL (4.70-6.10); White Blood Cell (WBC) Count 22.3 10x3/uL (4.8-10.8)
[2022-10-15 07:24] LABS: ALT (SGPT) 44 U/L (8-55); AST (SGOT) 41 U/L (5-34); Albumin 2.8 g/dL (3.5-5.0); Alkaline Phosphatase 186 U/L (40-110); Anion Gap 13 mmol/L (10-20); BUN (Urea Nitrogen) 6 mg/dL (8.9-20.6); Bilirubin, Total 0.7 mg/dL (0.2-1.2); Calc. Creatinine Clearance 159 mL/min (70-130); Calcium 9.5 mg/dL (7.8-10.44); Carbon Dioxide 25 mmol/L (22-29); Chloride 97 mmol/L (98-107); Estimated GFR 132; Globulin 3.7 g/dL (2.4-3.5); Glucose 101 mg/dL (70-105); Potassium 3.4 mmol/L (3.5-5.1); Protein, Total 6.5 g/dL (6.0-8.3); Sodium 132 mmol/L (136-145)
[2022-10-15] MEDS ORDERED: Potassium Chloride 20 MEQ TAB PO SCH (09:00)
[2022-10-15] MEDS: Multivitamin W/ Minerals 1 TAB PO SCH (09:49)
[2022-10-15] MEDS: Benzonatate 100 MG CAP PO SCH ×3 (09:49→20:57)
[2022-10-15] MEDS: guaiFENesin ER 600 MG TAB PO SCH ×2 (09:49→20:56)
[2022-10-15] MEDS: Isoniazid 100 MG TAB PO SCH (09:49)
[2022-10-15] MEDS: Rifampin 300 MG CAP PO SCH (09:50)
[2022-10-15] MEDS: Pregabalin 75 MG CAP PO SCH ×2 (09:50→20:57)
[2022-10-15] MEDS: pyridOXINE 50 MG (B6) TAB PO SCH (09:50)
[2022-10-15] MEDS: Pyrazinamide 500 MG TAB PO SCH (09:50)
[2022-10-15] MEDS: Acetaminophen/Codeine 30-300mg Tablet PO PRN ×2 (09:51→16:01)
[2022-10-15] MEDS: Polyethylene Glycol 3350 17 GM Packet PO SCH (09:51)
[2022-10-15 11:26] LABS: Ref Lab Test Ordered MTBC COMPLEX
[2022-10-15] MEDS: Melatonin 3 MG TAB PO PRN (22:34)
[2022-10-15] MEDS: HYDROmorphone/PF 10 MG in Sodium Chloride 0.9% 99 ML IVPB PRN (22:39)
[2022-10-16] MEDS: Linezolid 600 MG in Premix Bag 1 BAG IVPB SCH ×2 (03:16→16:49)
[2022-10-16] MEDS: Meropenem 1 GM in Sodium Chloride 0.9% 100 ML IVPB SCH ×3 (05:23→22:51)
[2022-10-16] MEDS: traMADol HCl 50 MG TAB PO SCH ×3 (05:26→17:27)
[2022-10-16] MEDS: Ibuprofen 200 MG TAB PO SCH ×4 (05:27→22:58)
[2022-10-16] MEDS: Acetaminophen 325 MG TAB PO SCH ×3 (05:27→17:26)
[2022-10-16] MEDS: Ondansetron PF 4 MG/2 ML Vial IVP PRN (06:31)
[2022-10-16 07:18] LABS: #Basophils 0.1 thou/uL (0.0-0.2); #Eosinphils 0.1 thou/uL (0.0-0.7); #Monocytes 1.5 thou/uL (0.11-0.59); #Neutrophils 17.7 thou/uL (1.40-6.50); %Basophils 0.3 % (0.0-1.0); %Eosinophils 0.7 % (0.0-10.0); %Lymphocytes 3.1 % (21.0-51.0); %Monocytes 7.6 % (0.0-10.0); %Neutrophils 87.8 % (42.0-75.0); Hematocrit 34.4 % (42.0-52.0); Hemoglobin 11.6 g/dL (14.0-18.0); Mean Corpuscular HGB CONC 33.7 g/dL (32.0-36.0); Mean Corpuscular Hemoglobin 29.5 pg (27.0-31.0); Mean Corpuscular Volume 87.5 fl (78.0-98.0); Mean Platelet Volume 8.7 fL (7.4-10.4); Platelet Count 427 10x3/uL (130-400); RBC Distribution Width 14.5 % (11.5-14.5); Red Blood Cell (RBC) Count 3.93 mill/uL (4.70-6.10); White Blood Cell (WBC) Count 20.2 10x3/uL (4.8-10.8)
[2022-10-16 07:42] LABS: ALT (SGPT) 49 U/L (8-55); AST (SGOT) 49 U/L (5-34); Albumin 2.9 g/dL (3.5-5.0); Alkaline Phosphatase 196 U/L (40-110); Anion Gap 15 mmol/L (10-20); BUN (Urea Nitrogen) 7 mg/dL (8.9-20.6); Bilirubin, Total 0.7 mg/dL (0.2-1.2); Calc. Creatinine Clearance 154 mL/min (70-130); Calcium 9.1 mg/dL (7.8-10.44); Carbon Dioxide 24 mmol/L (22-29); Chloride 96 mmol/L (98-107); Estimated GFR 131; Globulin 3.8 g/dL (2.4-3.5); Glucose 112 mg/dL (70-105); Potassium 3.6 mmol/L (3.5-5.1); Protein, Total 6.7 g/dL (6.0-8.3); Sodium 131 mmol/L (136-145)
[2022-10-16] MEDS: guaiFENesin ER 600 MG TAB PO SCH ×2 (08:30→21:07)
[2022-10-16] MEDS: Acetaminophen/Codeine 30-300mg Tablet PO PRN ×2 (08:30→21:05)
[2022-10-16] MEDS: GUAIFENESIN SF SOLN 200 MG/10 ML UDCUP PO PRN (08:30)
[2022-10-16] MEDS: Pregabalin 75 MG CAP PO SCH ×2 (08:31→21:04)
[2022-10-16] MEDS: Rifampin 300 MG CAP PO SCH (08:31)
[2022-10-16] MEDS: Pyrazinamide 500 MG TAB PO SCH (08:31)
[2022-10-16] MEDS: Benzonatate 100 MG CAP PO SCH ×3 (08:31→21:08)
[2022-10-16] MEDS: pyridOXINE 50 MG (B6) TAB PO SCH (08:31)
[2022-10-16] MEDS: Multivitamin W/ Minerals 1 TAB PO SCH (08:31)
[2022-10-16] MEDS: Isoniazid 100 MG TAB PO SCH (08:31)
[2022-10-16] MEDS: Polyethylene Glycol 3350 17 GM Packet PO SCH (08:32)
[2022-10-16 17:39] LABS: A. flavus Negative (Neg:<1:1); A. fumigatus Negative (Neg:<1:1); A. niger Negative (Neg:<1:1)
[2022-10-16] MEDS: Fluconazole In NaCl,Iso-Osm 400 MG in Premix Bag 1 BAG IVPB SCH (19:13)
[2022-10-16] MEDS: HYDROmorphone/PF 10 MG in Sodium Chloride 0.9% 99 ML IVPB PRN (22:41)
[2022-10-16] MEDS: Melatonin 3 MG TAB PO PRN (22:58)
[2022-10-17] MEDS: traMADol HCl 50 MG TAB PO SCH ×4 (00:53→18:36)
[2022-10-17] MEDS: Acetaminophen 325 MG TAB PO SCH ×4 (00:59→18:36)
[2022-10-17] MEDS: Linezolid 600 MG in Premix Bag 1 BAG IVPB SCH ×2 (03:37→13:51)
[2022-10-17] MEDS: Ibuprofen 200 MG TAB PO SCH ×3 (06:17→18:36)
[2022-10-17] MEDS: Meropenem 1 GM in Sodium Chloride 0.9% 100 ML IVPB SCH ×3 (06:19→21:26)
[2022-10-17 08:06] LABS: #Basophils 0.1 thou/uL (0.0-0.2); #Eosinphils 0.5 thou/uL (0.0-0.7); #Monocytes 1.4 thou/uL (0.11-0.59); #Neutrophils 15.3 thou/uL (1.40-6.50); %Basophils 0.4 % (0.0-1.0); %Eosinophils 2.7 % (0.0-10.0); %Monocytes 7.8 % (0.0-10.0); %Neutrophils 84.5 % (42.0-75.0); Hematocrit 34.5 % (42.0-52.0); Hemoglobin 11.3 g/dL (14.0-18.0); Mean Corpuscular HGB CONC 32.8 g/dL (32.0-36.0); Mean Corpuscular Hemoglobin 29.4 pg (27.0-31.0); Mean Corpuscular Volume 89.6 fl (78.0-98.0); Mean Platelet Volume 8.7 fL (7.4-10.4); Platelet Count 355 10x3/uL (130-400); RBC Distribution Width 14.5 % (11.5-14.5); Red Blood Cell (RBC) Count 3.85 mill/uL (4.70-6.10); White Blood Cell (WBC) Count 18.1 10x3/uL (4.8-10.8)
[2022-10-17 08:36] LABS: ALT (SGPT) 47 U/L (8-55); AST (SGOT) 46 U/L (5-34); Albumin 2.7 g/dL (3.5-5.0); Alkaline Phosphatase 173 U/L (40-110); Anion Gap 11 mmol/L (10-20); BUN (Urea Nitrogen) 11 mg/dL (8.9-20.6); Bilirubin, Total 0.6 mg/dL (0.2-1.2); Calc. Creatinine Clearance 145 mL/min (70-130); Calcium 9.4 mg/dL (7.8-10.44); Carbon Dioxide 25 mmol/L (22-29); Chloride 101 mmol/L (98-107); Estimated GFR 129; Globulin 3.4 g/dL (2.4-3.5); Glucose 98 mg/dL (70-105); Potassium 3.7 mmol/L (3.5-5.1); Protein, Total 6.1 g/dL (6.0-8.3); Sodium 133 mmol/L (136-145)
[2022-10-17] MEDS: Benzonatate 100 MG CAP PO SCH ×3 (08:59→21:24)
[2022-10-17] MEDS: Acetaminophen/Codeine 30-300mg Tablet PO PRN ×3 (09:00→21:25)
[2022-10-17] MEDS: Multivitamin W/ Minerals 1 TAB PO SCH (09:00)
[2022-10-17] MEDS: Rifampin 300 MG CAP PO SCH ×2 (09:01→09:05)
[2022-10-17] MEDS: pyridOXINE 50 MG (B6) TAB PO SCH (09:01)
[2022-10-17] MEDS: Pyrazinamide 500 MG TAB PO SCH (09:05)
[2022-10-17] MEDS: Isoniazid 100 MG TAB PO SCH (09:05)
[2022-10-17] MEDS: Pregabalin 75 MG CAP PO SCH ×2 (09:05→21:24)
[2022-10-17] MEDS: guaiFENesin ER 600 MG TAB PO SCH ×2 (09:05→21:24)
[2022-10-17] MEDS: Polyethylene Glycol 3350 17 GM Packet PO SCH (09:06)
[2022-10-17] MEDS: GUAIFENESIN SF SOLN 200 MG/10 ML UDCUP PO PRN (18:38)
[2022-10-17] MEDS: Fluconazole In NaCl,Iso-Osm 400 MG in Premix Bag 1 BAG IVPB SCH (18:46)
[2022-10-17] MEDS: Melatonin 3 MG TAB PO PRN (21:23)
[2022-10-18] MEDS: Acetaminophen 325 MG TAB PO SCH ×4 (00:19→18:06)
[2022-10-18] MEDS: traMADol HCl 50 MG TAB PO SCH ×4 (00:20→18:05)
[2022-10-18] MEDS: Ibuprofen 200 MG TAB PO SCH ×4 (00:21→18:06)
[2022-10-18] MEDS: Linezolid 600 MG in Premix Bag 1 BAG IVPB SCH ×2 (03:42→14:33)
[2022-10-18] MEDS: Meropenem 1 GM in Sodium Chloride 0.9% 100 ML IVPB SCH ×3 (06:11→21:14)
[2022-10-18 06:40] LABS: #Basophils 0.1 thou/uL (0.0-0.2); #Eosinphils 0.5 thou/uL (0.0-0.7); #Monocytes 1.2 thou/uL (0.11-0.59); #Neutrophils 12.7 thou/uL (1.40-6.50); %Basophils 0.4 % (0.0-1.0); %Eosinophils 3.1 % (0.0-10.0); %Lymphocytes 5.8 % (21.0-51.0); %Neutrophils 82.3 % (42.0-75.0); Hematocrit 32.5 % (42.0-52.0); Hemoglobin 10.6 g/dL (14.0-18.0); Mean Corpuscular HGB CONC 32.6 g/dL (32.0-36.0); Mean Corpuscular Hemoglobin 29.5 pg (27.0-31.0); Mean Corpuscular Volume 90.5 fl (78.0-98.0); Mean Platelet Volume 8.7 fL (7.4-10.4); Platelet Count 367 10x3/uL (130-400); RBC Distribution Width 14.3 % (11.5-14.5); Red Blood Cell (RBC) Count 3.59 mill/uL (4.70-6.10); White Blood Cell (WBC) Count 15.4 10x3/uL (4.8-10.8)
[2022-10-18 07:02] LABS: ALT (SGPT) 43 U/L (8-55); AST (SGOT) 42 U/L (5-34); Albumin 2.5 g/dL (3.5-5.0); Alkaline Phosphatase 161 U/L (40-110); Anion Gap 12 mmol/L (10-20); BUN (Urea Nitrogen) 12 mg/dL (8.9-20.6); Bilirubin, Total 0.5 mg/dL (0.2-1.2); Calc. Creatinine Clearance 159 mL/min (70-130); Calcium 9.1 mg/dL (7.8-10.44); Carbon Dioxide 26 mmol/L (22-29); Chloride 101 mmol/L (98-107); Estimated GFR 132; Globulin 3.2 g/dL (2.4-3.5); Glucose 122 mg/dL (70-105); Potassium 3.5 mmol/L (3.5-5.1); Protein, Total 5.7 g/dL (6.0-8.3); Sodium 135 mmol/L (136-145)
[2022-10-18] MEDS ORDERED: Potassium Chloride 20 MEQ TAB PO SCH (08:00)
[2022-10-18] MEDS: Rifampin 300 MG CAP PO SCH (08:24)
[2022-10-18] MEDS: Pregabalin 75 MG CAP PO SCH ×2 (08:25→21:14)
[2022-10-18] MEDS: guaiFENesin ER 600 MG TAB PO SCH ×2 (08:25→21:14)
[2022-10-18] MEDS: Multivitamin W/ Minerals 1 TAB PO SCH (08:25)
[2022-10-18] MEDS: Benzonatate 100 MG CAP PO SCH ×3 (08:26→21:14)
[2022-10-18] MEDS: Pyrazinamide 500 MG TAB PO SCH (08:26)
[2022-10-18] MEDS: pyridOXINE 50 MG (B6) TAB PO SCH (08:26)
[2022-10-18] MEDS: Isoniazid 100 MG TAB PO SCH (08:26)
[2022-10-18] MEDS: Polyethylene Glycol 3350 17 GM Packet PO SCH (08:27)
[2022-10-18] MEDS: Acetaminophen/Codeine 30-300mg Tablet PO PRN ×3 (09:27→21:28)
[2022-10-18] MEDS: GUAIFENESIN SF SOLN 200 MG/10 ML UDCUP PO PRN ×3 (09:27→21:28)
[2022-10-18] MEDS: HYDROmorphone/PF 10 MG in Sodium Chloride 0.9% 99 ML IVPB PRN (15:32)
[2022-10-18] MEDS: Melatonin 3 MG TAB PO PRN (21:31)
[2022-10-19] MEDS: traMADol HCl 50 MG TAB PO SCH ×5 (00:25→23:19)
[2022-10-19] MEDS: Ibuprofen 200 MG TAB PO SCH ×5 (00:25→23:20)
[2022-10-19] MEDS: Acetaminophen 325 MG TAB PO SCH ×5 (00:26→23:19)
[2022-10-19] MEDS: Linezolid 600 MG in Premix Bag 1 BAG IVPB SCH ×2 (03:31→14:42)
[2022-10-19] MEDS: Meropenem 1 GM in Sodium Chloride 0.9% 100 ML IVPB SCH ×3 (06:11→21:37)
[2022-10-19] MEDS: pyridOXINE 50 MG (B6) TAB PO SCH (08:04)
[2022-10-19] MEDS: Ondansetron PF 4 MG/2 ML Vial IVP PRN (08:04)
[2022-10-19] MEDS: guaiFENesin ER 600 MG TAB PO SCH ×2 (08:04→21:36)
[2022-10-19] MEDS: Multivitamin W/ Minerals 1 TAB PO SCH (08:04)
[2022-10-19] MEDS: Rifampin 300 MG CAP PO SCH (08:04)
[2022-10-19] MEDS: Pregabalin 75 MG CAP PO SCH ×2 (08:05→21:36)
[2022-10-19] MEDS: Isoniazid 100 MG TAB PO SCH (08:05)
[2022-10-19] MEDS: Benzonatate 100 MG CAP PO SCH ×3 (08:05→21:36)
[2022-10-19] MEDS: Pyrazinamide 500 MG TAB PO SCH (08:05)
[2022-10-19] MEDS: Polyethylene Glycol 3350 17 GM Packet PO SCH (08:17)
[2022-10-19] MEDS: Acetaminophen/Codeine 30-300mg Tablet PO PRN ×3 (09:14→21:44)
[2022-10-19] MEDS ORDERED: Midazolam HCl 2 mg/2 ml Vial ONE (10:47)
[2022-10-19] MEDS ORDERED: Sodium Bicarbonate 2.5 MEQ/5 ML VIAL ONE (10:47)
[2022-10-19] MEDS ORDERED: fentaNYL 50 mcg/mL 1 mL Vial ONE (10:47)
[2022-10-19 10:50] LABS: PTT 42.9 sec (22.9-36.1); Prothrombin Time 14.1 sec (12.0-14.7)
[2022-10-19] MEDS: HYDROmorphone/PF 10 MG in Sodium Chloride 0.9% 99 ML IVPB PRN (17:48)
[2022-10-19] MEDS ORDERED: Morphine 4 MG/ML VIAL SLOW IVP SCH (20:45)
[2022-10-19] MEDS: Melatonin 3 MG TAB PO PRN (21:44)
[2022-10-19] MEDS: GUAIFENESIN SF SOLN 200 MG/10 ML UDCUP PO PRN (23:19)
[2022-10-20] MEDS: Linezolid 600 MG in Premix Bag 1 BAG IVPB SCH ×2 (03:25→14:35)
[2022-10-20] MEDS: Meropenem 1 GM in Sodium Chloride 0.9% 100 ML IVPB SCH ×3 (05:55→22:09)
[2022-10-20] MEDS: Acetaminophen 325 MG TAB PO SCH ×4 (05:56→23:37)
[2022-10-20] MEDS: traMADol HCl 50 MG TAB PO SCH ×4 (05:56→23:37)
[2022-10-20] MEDS: Ibuprofen 200 MG TAB PO SCH ×4 (05:56→23:38)
[2022-10-20] MEDS: guaiFENesin ER 600 MG TAB PO SCH ×2 (07:51→21:11)
[2022-10-20] MEDS: Rifampin 300 MG CAP PO SCH (07:51)
[2022-10-20] MEDS: Multivitamin W/ Minerals 1 TAB PO SCH (07:52)
[2022-10-20] MEDS: Benzonatate 100 MG CAP PO SCH ×3 (07:52→21:14)
[2022-10-20] MEDS: pyridOXINE 50 MG (B6) TAB PO SCH (07:52)
[2022-10-20] MEDS: Pregabalin 75 MG CAP PO SCH ×2 (07:52→21:13)
[2022-10-20] MEDS: Polyethylene Glycol 3350 17 GM Packet PO SCH (07:53)
[2022-10-20] MEDS: Isoniazid 100 MG TAB PO SCH (07:53)
[2022-10-20] MEDS: Pyrazinamide 500 MG TAB PO SCH (07:54)
[2022-10-20] MEDS: Acetaminophen/Codeine 30-300mg Tablet PO PRN ×3 (08:12→21:11)
[2022-10-20] MEDS: GUAIFENESIN SF SOLN 200 MG/10 ML UDCUP PO PRN ×2 (08:12→16:41)
[2022-10-20] MEDS: HYDROmorphone/PF 10 MG in Sodium Chloride 0.9% 99 ML IVPB PRN (15:40)
[2022-10-20] MEDS: Melatonin 3 MG TAB PO PRN (22:07)
[2022-10-21] MEDS: Linezolid 600 MG in Premix Bag 1 BAG IVPB SCH ×2 (03:13→16:22)
[2022-10-21] MEDS: Acetaminophen 325 MG TAB PO SCH ×3 (06:49→17:30)
[2022-10-21] MEDS: Meropenem 1 GM in Sodium Chloride 0.9% 100 ML IVPB SCH ×3 (06:49→21:33)
[2022-10-21] MEDS: Ibuprofen 200 MG TAB PO SCH ×3 (06:50→17:30)
[2022-10-21] MEDS: traMADol HCl 50 MG TAB PO SCH ×3 (06:50→17:30)
[2022-10-21] MEDS: Ondansetron PF 4 MG/2 ML Vial IVP PRN (06:51)
[2022-10-21] MEDS: Rifampin 300 MG CAP PO SCH (09:02)
[2022-10-21] MEDS: Benzonatate 100 MG CAP PO SCH ×3 (09:02→21:01)
[2022-10-21] MEDS: Pyrazinamide 500 MG TAB PO SCH (09:02)
[2022-10-21] MEDS: Pregabalin 75 MG CAP PO SCH ×2 (09:02→21:01)
[2022-10-21] MEDS: Multivitamin W/ Minerals 1 TAB PO SCH (09:02)
[2022-10-21] MEDS: Isoniazid 100 MG TAB PO SCH (09:02)
[2022-10-21] MEDS: pyridOXINE 50 MG (B6) TAB PO SCH (09:03)
[2022-10-21] MEDS: guaiFENesin ER 600 MG TAB PO SCH ×2 (09:03→21:01)
[2022-10-21] MEDS: Acetaminophen/Codeine 30-300mg Tablet PO PRN ×2 (09:10→21:29)
[2022-10-21] MEDS: Polyethylene Glycol 3350 17 GM Packet PO SCH (09:12)
[2022-10-21] MEDS: HYDROmorphone/PF 10 MG in Sodium Chloride 0.9% 99 ML IVPB PRN (13:14)
[2022-10-21] MEDS: Melatonin 3 MG TAB PO PRN (21:29)
[2022-10-22] MEDS: Acetaminophen 325 MG TAB PO SCH ×4 (00:57→17:50)
[2022-10-22] MEDS: Ibuprofen 200 MG TAB PO SCH ×4 (00:58→17:51)
[2022-10-22] MEDS: traMADol HCl 50 MG TAB PO SCH ×4 (00:58→17:50)
[2022-10-22] MEDS: GUAIFENESIN SF SOLN 200 MG/10 ML UDCUP PO PRN ×2 (01:51→21:55)
[2022-10-22] MEDS: Linezolid 600 MG in Premix Bag 1 BAG IVPB SCH (03:42)
[2022-10-22] MEDS: Meropenem 1 GM in Sodium Chloride 0.9% 100 ML IVPB SCH ×3 (06:11→21:55)
[2022-10-22] MEDS: Isoniazid 100 MG TAB PO SCH (08:32)
[2022-10-22] MEDS: Polyethylene Glycol 3350 17 GM Packet PO SCH ×2 (08:32→08:51)
[2022-10-22] MEDS: Pyrazinamide 500 MG TAB PO SCH (08:32)
[2022-10-22] MEDS: pyridOXINE 50 MG (B6) TAB PO SCH (08:34)
[2022-10-22] MEDS: Multivitamin W/ Minerals 1 TAB PO SCH (08:34)
[2022-10-22] MEDS: Benzonatate 100 MG CAP PO SCH ×3 (08:34→21:53)
[2022-10-22] MEDS: guaiFENesin ER 600 MG TAB PO SCH ×2 (08:34→21:53)
[2022-10-22] MEDS: Pregabalin 75 MG CAP PO SCH ×2 (08:34→21:54)
[2022-10-22] MEDS: Rifampin 300 MG CAP PO SCH (08:41)
[2022-10-22] MEDS: Acetaminophen/Codeine 30-300mg Tablet PO PRN ×3 (08:53→21:54)
[2022-10-22] MEDS: HYDROmorphone/PF 10 MG in Sodium Chloride 0.9% 99 ML IVPB PRN (18:24)
[2022-10-22] MEDS: Melatonin 3 MG TAB PO PRN (21:53)
[2022-10-23] MEDS: Ibuprofen 200 MG TAB PO SCH ×4 (00:57→17:45)
[2022-10-23] MEDS: Acetaminophen 325 MG TAB PO SCH ×4 (00:58→15:39)
[2022-10-23] MEDS: traMADol HCl 50 MG TAB PO SCH ×4 (00:58→18:03)
[2022-10-23] MEDS: Meropenem 1 GM in Sodium Chloride 0.9% 100 ML IVPB SCH ×3 (06:33→21:05)
[2022-10-23] MEDS: pyridOXINE 50 MG (B6) TAB PO SCH (08:29)
[2022-10-23] MEDS: Multivitamin W/ Minerals 1 TAB PO SCH (08:30)
[2022-10-23] MEDS: guaiFENesin ER 600 MG TAB PO SCH ×2 (08:30→21:01)
[2022-10-23] MEDS: Pregabalin 75 MG CAP PO SCH ×2 (08:30→21:02)
[2022-10-23] MEDS: Rifampin 300 MG CAP PO SCH (08:30)
[2022-10-23] MEDS: Benzonatate 100 MG CAP PO SCH ×3 (08:30→21:01)
[2022-10-23] MEDS: Ethambutol HCl 400 MG TAB PO SCH (08:30)
[2022-10-23] MEDS: Pyrazinamide 500 MG TAB PO SCH (08:31)
[2022-10-23] MEDS: Acetaminophen/Codeine 30-300mg Tablet PO PRN ×2 (08:31→15:51)
[2022-10-23] MEDS: Isoniazid 100 MG TAB PO SCH (08:32)
[2022-10-23] MEDS: Polyethylene Glycol 3350 17 GM Packet PO SCH (08:32)
[2022-10-23] MEDS: GUAIFENESIN SF SOLN 200 MG/10 ML UDCUP PO PRN ×2 (08:32→21:00)
[2022-10-23] MEDS ORDERED: Acetaminophen 325 MG TAB PO SCH (17:00)
[2022-10-23] MEDS: HYDROmorphone/PF 10 MG in Sodium Chloride 0.9% 99 ML IVPB PRN (17:24)
[2022-10-23] MEDS: Melatonin 3 MG TAB PO PRN (21:01)
[2022-10-23] MEDS: Ondansetron PF 4 MG/2 ML Vial IVP PRN (23:10)
[2022-10-24] MEDS: Ibuprofen 200 MG TAB PO SCH ×4 (00:33→17:47)
[2022-10-24] MEDS: traMADol HCl 50 MG TAB PO SCH ×4 (00:33→17:47)
[2022-10-24] MEDS: Meropenem 1 GM in Sodium Chloride 0.9% 100 ML IVPB SCH ×2 (06:26→14:29)
[2022-10-24] MEDS: Ethambutol HCl 400 MG TAB PO SCH (09:01)
[2022-10-24] MEDS: Benzonatate 100 MG CAP PO SCH ×3 (09:01→21:31)
[2022-10-24] MEDS: Polyethylene Glycol 3350 17 GM Packet PO SCH (09:02)
[2022-10-24] MEDS: guaiFENesin ER 600 MG TAB PO SCH ×2 (09:02→21:31)
[2022-10-24] MEDS: Multivitamin W/ Minerals 1 TAB PO SCH (09:02)
[2022-10-24] MEDS: Pregabalin 75 MG CAP PO SCH ×2 (09:02→21:31)
[2022-10-24] MEDS: Isoniazid 100 MG TAB PO SCH (09:02)
[2022-10-24] MEDS: GUAIFENESIN SF SOLN 200 MG/10 ML UDCUP PO PRN (09:03)
[2022-10-24] MEDS: Pyrazinamide 500 MG TAB PO SCH (09:03)
[2022-10-24] MEDS: pyridOXINE 50 MG (B6) TAB PO SCH (09:03)
[2022-10-24] MEDS: Rifampin 300 MG CAP PO SCH (09:03)
[2022-10-24] MEDS: HYDROmorphone/PF 10 MG in Sodium Chloride 0.9% 99 ML IVPB PRN (18:42)
[2022-10-24] MEDS: Melatonin 3 MG TAB PO PRN (21:31)
[2022-10-25] MEDS: traMADol HCl 50 MG TAB PO SCH ×5 (00:02→23:30)
[2022-10-25] MEDS: Ibuprofen 200 MG TAB PO SCH ×5 (00:03→23:31)
[2022-10-25] MEDS ORDERED: Acetaminophen/Codeine 30-300mg Tablet PO PRN (09:24)
[2022-10-25 09:33] LABS: #Basophils 0.1 thou/uL (0.0-0.2); #Eosinphils 0.3 thou/uL (0.0-0.7); #Monocytes 2.2 thou/uL (0.11-0.59); #Neutrophils 14.7 thou/uL (1.40-6.50); %Basophils 0.5 % (0.0-1.0); %Eosinophils 1.5 % (0.0-10.0); %Lymphocytes 6.5 % (21.0-51.0); %Monocytes 11.8 % (0.0-10.0); %Neutrophils 79.3 % (42.0-75.0); Hemoglobin 11.7 g/dL (14.0-18.0); Mean Corpuscular HGB CONC 33.4 g/dL (32.0-36.0); Mean Corpuscular Hemoglobin 29.7 pg (27.0-31.0); Mean Corpuscular Volume 88.8 fl (78.0-98.0); Mean Platelet Volume 8.8 fL (7.4-10.4); Platelet Count 304 10x3/uL (130-400); RBC Distribution Width 14.1 % (11.5-14.5); Red Blood Cell (RBC) Count 3.94 mill/uL (4.70-6.10); White Blood Cell (WBC) Count 18.5 10x3/uL (4.8-10.8)
[2022-10-25] MEDS: pyridOXINE 50 MG (B6) TAB PO SCH (09:45)
[2022-10-25] MEDS: Ethambutol HCl 400 MG TAB PO SCH (09:45)
[2022-10-25] MEDS: Benzonatate 100 MG CAP PO SCH ×3 (09:46→21:26)
[2022-10-25] MEDS: Multivitamin W/ Minerals 1 TAB PO SCH (09:46)
[2022-10-25] MEDS: guaiFENesin ER 600 MG TAB PO SCH ×2 (09:46→21:26)
[2022-10-25] MEDS: Pregabalin 75 MG CAP PO SCH ×2 (09:46→21:27)
[2022-10-25] MEDS: Pyrazinamide 500 MG TAB PO SCH (09:46)
[2022-10-25] MEDS: Rifampin 300 MG CAP PO SCH (09:46)
[2022-10-25] MEDS: Isoniazid 100 MG TAB PO SCH (09:46)
[2022-10-25] MEDS: Polyethylene Glycol 3350 17 GM Packet PO SCH (09:47)
[2022-10-25 09:52] LABS: Anion Gap 18 mmol/L (10-20); BUN (Urea Nitrogen) 13 mg/dL (8.9-20.6); Calc. Creatinine Clearance 152 mL/min (70-130); Calcium 9.5 mg/dL (7.8-10.44); Carbon Dioxide 26 mmol/L (22-29); Chloride 94 mmol/L (98-107); Estimated GFR 130; Glucose 103 mg/dL (70-105); Potassium 3.7 mmol/L (3.5-5.1); Sodium 134 mmol/L (136-145)
[2022-10-25] MEDS: Acetaminophen/Codeine 30-300mg Tablet PO PRN ×3 (10:00→21:26)
[2022-10-25] MEDS: GUAIFENESIN SF SOLN 200 MG/10 ML UDCUP PO PRN ×2 (10:01→15:31)
[2022-10-25] MEDS: Melatonin 3 MG TAB PO PRN (21:26)
[2022-10-26] MEDS: HYDROmorphone/PF 10 MG in Sodium Chloride 0.9% 99 ML IVPB PRN (00:22)
[2022-10-26] MEDS: Acetaminophen/Codeine 30-300mg Tablet PO PRN ×4 (04:45→20:37)
[2022-10-26] MEDS: GUAIFENESIN SF SOLN 200 MG/10 ML UDCUP PO PRN ×3 (04:45→18:19)
[2022-10-26] MEDS: Ibuprofen 200 MG TAB PO SCH ×4 (05:43→23:13)
[2022-10-26] MEDS: traMADol HCl 50 MG TAB PO SCH ×4 (05:43→23:13)
[2022-10-26] MEDS: Isoniazid 100 MG TAB PO SCH (09:01)
[2022-10-26] MEDS: pyridOXINE 50 MG (B6) TAB PO SCH (09:01)
[2022-10-26] MEDS: guaiFENesin ER 600 MG TAB PO SCH ×2 (09:01→20:37)
[2022-10-26] MEDS: Pregabalin 75 MG CAP PO SCH ×2 (09:01→20:38)
[2022-10-26] MEDS: Multivitamin W/ Minerals 1 TAB PO SCH (09:01)
[2022-10-26] MEDS: Benzonatate 100 MG CAP PO SCH ×3 (09:01→20:37)
[2022-10-26] MEDS: Pyrazinamide 500 MG TAB PO SCH (09:02)
[2022-10-26] MEDS: Ethambutol HCl 400 MG TAB PO SCH (09:02)
[2022-10-26] MEDS: Rifampin 300 MG CAP PO SCH (09:02)
[2022-10-26] MEDS: Polyethylene Glycol 3350 17 GM Packet PO SCH (09:03)
[2022-10-26] MEDS: Melatonin 3 MG TAB PO PRN (20:37)
[2022-10-27] MEDS: GUAIFENESIN SF SOLN 200 MG/10 ML UDCUP PO PRN ×3 (05:43→17:26)
[2022-10-27] MEDS: traMADol HCl 50 MG TAB PO SCH ×3 (05:43→17:27)
[2022-10-27] MEDS: Ibuprofen 200 MG TAB PO SCH ×3 (05:44→17:26)
[2022-10-27] MEDS: HYDROmorphone/PF 10 MG in Sodium Chloride 0.9% 99 ML IVPB PRN (07:53)
[2022-10-27] MEDS: Pregabalin 75 MG CAP PO SCH ×2 (09:12→21:20)
[2022-10-27] MEDS: Benzonatate 100 MG CAP PO SCH ×3 (09:12→21:19)
[2022-10-27] MEDS: guaiFENesin ER 600 MG TAB PO SCH ×2 (09:12→21:19)
[2022-10-27] MEDS: Rifampin 300 MG CAP PO SCH (09:12)
[2022-10-27] MEDS: pyridOXINE 50 MG (B6) TAB PO SCH (09:12)
[2022-10-27] MEDS: Pyrazinamide 500 MG TAB PO SCH (09:13)
[2022-10-27] MEDS: Multivitamin W/ Minerals 1 TAB PO SCH (09:13)
[2022-10-27] MEDS: Isoniazid 100 MG TAB PO SCH (09:13)
[2022-10-27] MEDS: Ethambutol HCl 400 MG TAB PO SCH (09:13)
[2022-10-27] MEDS: Acetaminophen/Codeine 30-300mg Tablet PO PRN ×3 (09:14→21:19)
[2022-10-27] MEDS: Polyethylene Glycol 3350 17 GM Packet PO SCH (09:30)
[2022-10-27] MEDS: Melatonin 3 MG TAB PO PRN (21:19)
[2022-10-28] MEDS: Ibuprofen 200 MG TAB PO SCH ×4 (00:50→17:21)
[2022-10-28] MEDS: traMADol HCl 50 MG TAB PO SCH ×4 (00:51→17:20)
[2022-10-28] MEDS: Polyethylene Glycol 3350 17 GM Packet PO SCH (08:11)
[2022-10-28] MEDS: Pregabalin 75 MG CAP PO SCH ×2 (08:12→21:18)
[2022-10-28] MEDS: Rifampin 300 MG CAP PO SCH (08:12)
[2022-10-28] MEDS: guaiFENesin ER 600 MG TAB PO SCH ×2 (08:13→21:18)
[2022-10-28] MEDS: pyridOXINE 50 MG (B6) TAB PO SCH (08:13)
[2022-10-28] MEDS: Ethambutol HCl 400 MG TAB PO SCH (08:13)
[2022-10-28] MEDS: Benzonatate 100 MG CAP PO SCH ×3 (08:13→21:19)
[2022-10-28] MEDS: Multivitamin W/ Minerals 1 TAB PO SCH (08:13)
[2022-10-28] MEDS: Pyrazinamide 500 MG TAB PO SCH (08:13)
[2022-10-28] MEDS: Isoniazid 100 MG TAB PO SCH (08:14)
[2022-10-28] MEDS: Acetaminophen/Codeine 30-300mg Tablet PO PRN ×3 (08:24→22:14)
[2022-10-28] MEDS: GUAIFENESIN SF SOLN 200 MG/10 ML UDCUP PO PRN (15:54)
[2022-10-28] MEDS: HYDROmorphone/PF 10 MG in Sodium Chloride 0.9% 99 ML IVPB PRN (18:34)
[2022-10-28] MEDS: Melatonin 3 MG TAB PO PRN (21:17)
[2022-10-29] MEDS: traMADol HCl 50 MG TAB PO SCH ×4 (00:49→20:00)
[2022-10-29] MEDS: Ibuprofen 200 MG TAB PO SCH ×4 (00:50→18:23)
[2022-10-29] MEDS: Rifampin 300 MG CAP PO SCH (08:04)
[2022-10-29] MEDS: Multivitamin W/ Minerals 1 TAB PO SCH (08:05)
[2022-10-29] MEDS: guaiFENesin ER 600 MG TAB PO SCH ×2 (08:05→20:01)
[2022-10-29] MEDS: Pregabalin 75 MG CAP PO SCH ×2 (08:05→20:01)
[2022-10-29] MEDS: Polyethylene Glycol 3350 17 GM Packet PO SCH (08:05)
[2022-10-29] MEDS: pyridOXINE 50 MG (B6) TAB PO SCH (08:06)
[2022-10-29] MEDS: Pyrazinamide 500 MG TAB PO SCH (08:06)
[2022-10-29] MEDS: Benzonatate 100 MG CAP PO SCH ×3 (08:06→20:01)
[2022-10-29] MEDS: Isoniazid 100 MG TAB PO SCH (08:08)
[2022-10-29] MEDS: Ethambutol HCl 400 MG TAB PO SCH (08:08)
[2022-10-29] MEDS: GUAIFENESIN SF SOLN 200 MG/10 ML UDCUP PO PRN (08:13)
[2022-10-29] MEDS: Acetaminophen/Codeine 30-300mg Tablet PO PRN ×3 (08:16→21:03)
[2022-10-29] MEDS: Melatonin 3 MG TAB PO PRN (21:04)
[2022-10-30] MEDS: HYDROmorphone/PF 10 MG in Sodium Chloride 0.9% 99 ML IVPB PRN (00:06)
[2022-10-30] MEDS: traMADol HCl 50 MG TAB PO SCH ×4 (00:22→17:17)
[2022-10-30] MEDS: Ibuprofen 200 MG TAB PO SCH ×4 (00:23→17:44)
[2022-10-30] MEDS: Rifampin 300 MG CAP PO SCH (08:04)
[2022-10-30] MEDS: pyridOXINE 50 MG (B6) TAB PO SCH (08:04)
[2022-10-30] MEDS: guaiFENesin ER 600 MG TAB PO SCH ×2 (08:04→20:29)
[2022-10-30] MEDS: Polyethylene Glycol 3350 17 GM Packet PO SCH (08:04)
[2022-10-30] MEDS: Multivitamin W/ Minerals 1 TAB PO SCH (08:04)
[2022-10-30] MEDS: Isoniazid 100 MG TAB PO SCH (08:05)
[2022-10-30] MEDS: Pregabalin 75 MG CAP PO SCH ×2 (08:05→20:29)
[2022-10-30] MEDS: Benzonatate 100 MG CAP PO SCH ×3 (08:05→20:29)
[2022-10-30] MEDS: Pyrazinamide 500 MG TAB PO SCH (08:06)
[2022-10-30] MEDS: Ethambutol HCl 400 MG TAB PO SCH (08:07)
[2022-10-30] MEDS: Acetaminophen/Codeine 30-300mg Tablet PO PRN ×3 (08:13→20:28)
[2022-10-30] MEDS: GUAIFENESIN SF SOLN 200 MG/10 ML UDCUP PO PRN (12:23)
[2022-10-30] MEDS: Melatonin 3 MG TAB PO PRN (20:29)
[2022-10-31] MEDS: traMADol HCl 50 MG TAB PO SCH ×4 (00:47→17:29)
[2022-10-31] MEDS: Ibuprofen 200 MG TAB PO SCH ×4 (00:47→17:29)
[2022-10-31 06:33] LABS: #Basophils 0.1 thou/uL (0.0-0.2); #Eosinphils 0.1 thou/uL (0.0-0.7); #Monocytes 1.7 thou/uL (0.11-0.59); #Neutrophils 17.5 thou/uL (1.40-6.50); %Basophils 0.4 % (0.0-1.0); %Eosinophils 0.5 % (0.0-10.0); %Lymphocytes 4.2 % (21.0-51.0); %Monocytes 8.4 % (0.0-10.0); Hemoglobin 10.7 g/dL (14.0-18.0); Mean Corpuscular HGB CONC 33.4 g/dL (32.0-36.0); Mean Corpuscular Hemoglobin 29.5 pg (27.0-31.0); Mean Corpuscular Volume 88.2 fl (78.0-98.0); Mean Platelet Volume 8.9 fL (7.4-10.4); Platelet Count 532 10x3/uL (130-400); RBC Distribution Width 14.2 % (11.5-14.5); Red Blood Cell (RBC) Count 3.63 mill/uL (4.70-6.10); White Blood Cell (WBC) Count 20.4 10x3/uL (4.8-10.8)
[2022-10-31 07:02] LABS: ALT (SGPT) 69 U/L (8-55); AST (SGOT) 54 U/L (5-34); Albumin 3.1 g/dL (3.5-5.0); Alkaline Phosphatase 227 U/L (40-110); Anion Gap 12 mmol/L (10-20); BUN (Urea Nitrogen) 18 mg/dL (8.9-20.6); Bilirubin, Total 0.5 mg/dL (0.2-1.2); Calc. Creatinine Clearance 84 mL/min (70-130); Calcium 9.7 mg/dL (7.8-10.44); Carbon Dioxide 25 mmol/L (22-29); Chloride 101 mmol/L (98-107); Estimated GFR 84; Globulin 4.3 g/dL (2.4-3.5); Glucose 114 mg/dL (70-105); Magnesium 1.6 mg/dL (1.6-2.6); Potassium 3.8 mmol/L (3.5-5.1); Protein, Total 7.4 g/dL (6.0-8.3); Sodium 134 mmol/L (136-145)
[2022-10-31] MEDS: Rifampin 300 MG CAP PO SCH (08:41)
[2022-10-31] MEDS: Benzonatate 100 MG CAP PO SCH ×3 (08:41→21:42)
[2022-10-31] MEDS: Pregabalin 75 MG CAP PO SCH ×2 (08:42→21:43)
[2022-10-31] MEDS: Ethambutol HCl 400 MG TAB PO SCH (08:42)
[2022-10-31] MEDS: Pyrazinamide 500 MG TAB PO SCH (08:42)
[2022-10-31] MEDS: guaiFENesin ER 600 MG TAB PO SCH ×2 (08:42→21:43)
[2022-10-31] MEDS: Multivitamin W/ Minerals 1 TAB PO SCH (08:42)
[2022-10-31] MEDS: Isoniazid 100 MG TAB PO SCH (08:42)
[2022-10-31] MEDS: pyridOXINE 50 MG (B6) TAB PO SCH (08:43)
[2022-10-31] MEDS: Acetaminophen/Codeine 30-300mg Tablet PO PRN ×3 (08:43→21:44)
[2022-10-31] MEDS: Polyethylene Glycol 3350 17 GM Packet PO SCH (08:56)
[2022-10-31] MEDS ORDERED: Magnesium 2 GM/50 ML(in water) 2 GM in Premix Bag 1 BAG IVPB SCH (09:00)
[2022-10-31] MEDS: HYDROmorphone/PF 10 MG in Sodium Chloride 0.9% 99 ML IVPB PRN (11:23)
[2022-10-31] MEDS: Melatonin 3 MG TAB PO PRN (21:45)
[2022-11-01] MEDS: Ibuprofen 200 MG TAB PO SCH ×4 (00:04→18:04)
[2022-11-01] MEDS: traMADol HCl 50 MG TAB PO SCH ×4 (00:05→18:03)
[2022-11-01 08:02] LABS: Magnesium 1.7 mg/dL (1.6-2.6)
[2022-11-01] MEDS ORDERED: Magnesium 2 GM/50 ML(in water) 2 GM in Premix Bag 1 BAG IVPB SCH (09:00)
[2022-11-01] MEDS: guaiFENesin ER 600 MG TAB PO SCH ×2 (10:10→21:00)
[2022-11-01] MEDS: Acetaminophen/Codeine 30-300mg Tablet PO PRN ×4 (10:11→21:00)
[2022-11-01] MEDS: Multivitamin W/ Minerals 1 TAB PO SCH (10:13)
[2022-11-01] MEDS: pyridOXINE 50 MG (B6) TAB PO SCH (10:13)
[2022-11-01] MEDS: Rifampin 300 MG CAP PO SCH (10:13)
[2022-11-01] MEDS: Benzonatate 100 MG CAP PO SCH ×3 (10:13→21:00)
[2022-11-01] MEDS: Pregabalin 75 MG CAP PO SCH ×2 (10:13→21:00)
[2022-11-01] MEDS: Pyrazinamide 500 MG TAB PO SCH (10:14)
[2022-11-01] MEDS: Isoniazid 100 MG TAB PO SCH (10:14)
[2022-11-01] MEDS: Ethambutol HCl 400 MG TAB PO SCH (10:14)
[2022-11-01] MEDS: Polyethylene Glycol 3350 17 GM Packet PO SCH (10:15)
[2022-11-01] MEDS: Melatonin 3 MG TAB PO PRN (21:02)
[2022-11-01] MEDS: HYDROmorphone/PF 10 MG in Sodium Chloride 0.9% 99 ML IVPB PRN (21:15)
[2022-11-02] MEDS: traMADol HCl 50 MG TAB PO SCH ×3 (00:33→11:29)
[2022-11-02] MEDS: Ibuprofen 200 MG TAB PO SCH ×3 (00:34→11:28)
[2022-11-02] MEDS: Acetaminophen/Codeine 30-300mg Tablet PO PRN ×3 (09:20→20:39)
[2022-11-02] MEDS: Isoniazid 100 MG TAB PO SCH (09:21)
[2022-11-02] MEDS: pyridOXINE 50 MG (B6) TAB PO SCH (09:21)
[2022-11-02] MEDS: Pyrazinamide 500 MG TAB PO SCH (09:21)
[2022-11-02] MEDS: Ethambutol HCl 400 MG TAB PO SCH (09:21)
[2022-11-02] MEDS: Rifampin 300 MG CAP PO SCH (09:22)
[2022-11-02] MEDS: guaiFENesin ER 600 MG TAB PO SCH ×2 (09:22→20:38)
[2022-11-02] MEDS: Multivitamin W/ Minerals 1 TAB PO SCH (09:22)
[2022-11-02] MEDS: Benzonatate 100 MG CAP PO SCH ×3 (09:22→20:38)
[2022-11-02] MEDS: Pregabalin 75 MG CAP PO SCH ×2 (09:22→20:38)
[2022-11-02] MEDS: Polyethylene Glycol 3350 17 GM Packet PO SCH (09:26)
[2022-11-02] MEDS ORDERED: Ibuprofen 600 MG TAB PO PRN (12:33)
[2022-11-02] MEDS ORDERED: traMADol HCl 50 MG TAB PO PRN (12:34)
[2022-11-02] MEDS ORDERED: HYDROmorphone/PF 10 MG in Sodium Chloride 0.9% 99 ML IVPB PRN (12:37)
[2022-11-02] MEDS: Melatonin 3 MG TAB PO PRN (20:37)
[2022-11-03 09:27] LABS: #Basophils 0.1 thou/uL (0.0-0.2); #Eosinphils 0.2 thou/uL (0.0-0.7); #Monocytes 1.5 thou/uL (0.11-0.59); %Basophils 0.6 % (0.0-1.0); %Eosinophils 1.4 % (0.0-10.0); %Lymphocytes 5.6 % (21.0-51.0); %Monocytes 9.7 % (0.0-10.0); %Neutrophils 82.3 % (42.0-75.0); Hematocrit 32.6 % (42.0-52.0); Hemoglobin 10.8 g/dL (14.0-18.0); Mean Corpuscular HGB CONC 33.1 g/dL (32.0-36.0); Mean Corpuscular Hemoglobin 29.3 pg (27.0-31.0); Mean Corpuscular Volume 88.3 fl (78.0-98.0); Mean Platelet Volume 8.5 fL (7.4-10.4); Platelet Count 529 10x3/uL (130-400); RBC Distribution Width 14.2 % (11.5-14.5); Red Blood Cell (RBC) Count 3.69 mill/uL (4.70-6.10); White Blood Cell (WBC) Count 15.8 10x3/uL (4.8-10.8)
[2022-11-03 09:51] LABS: Anion Gap 14 mmol/L (10-20); BUN (Urea Nitrogen) 13 mg/dL (8.9-20.6); Calc. Creatinine Clearance 145 mL/min (70-130); Calcium 9.5 mg/dL (7.8-10.44); Carbon Dioxide 25 mmol/L (22-29); Chloride 100 mmol/L (98-107); Estimated GFR 129; Glucose 106 mg/dL (70-105); Potassium 3.6 mmol/L (3.5-5.1); Sodium 135 mmol/L (136-145)
[2022-11-03] MEDS: Ethambutol HCl 400 MG TAB PO SCH (10:07)
[2022-11-03] MEDS: Benzonatate 100 MG CAP PO SCH ×3 (10:07→22:49)
[2022-11-03] MEDS: guaiFENesin ER 600 MG TAB PO SCH ×2 (10:07→22:49)
[2022-11-03] MEDS: Multivitamin W/ Minerals 1 TAB PO SCH (10:08)
[2022-11-03] MEDS: Isoniazid 100 MG TAB PO SCH (10:08)
[2022-11-03] MEDS: Pregabalin 75 MG CAP PO SCH ×2 (10:08→22:48)
[2022-11-03] MEDS: Pyrazinamide 500 MG TAB PO SCH (10:08)
[2022-11-03] MEDS: Polyethylene Glycol 3350 17 GM Packet PO SCH (10:08)
[2022-11-03] MEDS: pyridOXINE 50 MG (B6) TAB PO SCH (10:09)
[2022-11-03] MEDS: Rifampin 300 MG CAP PO SCH (10:09)
[2022-11-03] MEDS: Acetaminophen/Codeine 30-300mg Tablet PO PRN ×3 (10:29→22:57)
[2022-11-03] MEDS: traMADol HCl 50 MG TAB PO PRN (18:42)
[2022-11-03] MEDS ORDERED: Buprenorphine HCl 2 MG SL TAB SL SCH (19:00)
[2022-11-03] MEDS ORDERED: Lorazepam 2 MG/ML VIAL SLOW IVP SCH (19:30)
[2022-11-03] MEDS: Morphine 4 MG/ML VIAL SLOW IVP PRN (19:40)
[2022-11-03 21:05] LABS: Bacteria/HPF None Seen HPF (None Seen); Bilirubin Negative (Negative); Blood, Urine Negative (Negative); CAUTI Indications for Culture Dysuria,urgency,freq; Clarity Extra Turbid (Clear); Glucose, Urine (Dipstick) Normal (Negative); Ketone, Urine Negative (Negative); Leukocyte Negative Leu/uL (Negative); Nitrite Negative (Negative); Protein, Urine (Dipstick) 30 mg/dL (Neg-Trace); RBC/HPF 0-3 HPF (0-3); Specific Gravity, Urine 1.019 (1.002-1.036); Squamous Epithelial None Seen HPF (0-3); Urobilinogen Normal mg/dL (Less than 2); WBC/HPF 0-3 HPF (0-3)
[2022-11-03 21:08] LABS: Urine Culture Reflex No No
[2022-11-03] MEDS: Melatonin 3 MG TAB PO PRN (22:47)
[2022-11-04] MEDS: Morphine 4 MG/ML VIAL SLOW IVP PRN ×2 (00:28→04:45)
[2022-11-04] MEDS ORDERED: Ketorolac Tromethamine 30 MG/ML VIAL IVP SCH (03:00)
[2022-11-04] MEDS: traMADol HCl 50 MG TAB PO PRN (03:59)
[2022-11-04] MEDS ORDERED: Lorazepam 2 MG/ML VIAL SLOW IVP SCH (04:45)
[2022-11-04] MEDS ORDERED: Morphine 2 MG/ML VIAL SLOW IVP PRN (08:30)
[2022-11-04] MEDS: guaiFENesin ER 600 MG TAB PO SCH ×2 (09:06→20:28)
[2022-11-04] MEDS: Rifampin 300 MG CAP PO SCH (09:06)
[2022-11-04] MEDS: Multivitamin W/ Minerals 1 TAB PO SCH (09:06)
[2022-11-04] MEDS: Pregabalin 75 MG CAP PO SCH ×2 (09:06→20:28)
[2022-11-04] MEDS: pyridOXINE 50 MG (B6) TAB PO SCH (09:06)
[2022-11-04] MEDS: Benzonatate 100 MG CAP PO SCH ×3 (09:06→20:29)
[2022-11-04] MEDS: Morphine 2 MG/ML VIAL SLOW IVP PRN ×5 (09:07→20:27)
[2022-11-04] MEDS: Lorazepam 2 MG/ML VIAL SLOW IVP PRN ×3 (09:07→22:39)
[2022-11-04] MEDS: Pyrazinamide 500 MG TAB PO SCH (09:17)
[2022-11-04] MEDS: Ethambutol HCl 400 MG TAB PO SCH (09:17)
[2022-11-04] MEDS: Isoniazid 100 MG TAB PO SCH (09:17)
[2022-11-04] MEDS: Polyethylene Glycol 3350 17 GM Packet PO SCH (09:21)
[2022-11-04] MEDS: Acetaminophen/Codeine 30-300mg Tablet PO PRN ×2 (10:33→22:41)
[2022-11-04] MEDS: Phenazopyridine HCl 100 MG TAB PO SCH (18:14)
[2022-11-04] MEDS: Melatonin 3 MG TAB PO PRN (20:29)
[2022-11-05] MEDS: Morphine 2 MG/ML VIAL SLOW IVP PRN ×4 (00:26→20:15)
[2022-11-05] MEDS: Lorazepam 2 MG/ML VIAL SLOW IVP PRN ×3 (05:30→21:55)
[2022-11-05] MEDS: guaiFENesin ER 600 MG TAB PO SCH ×2 (08:24→20:16)
[2022-11-05] MEDS: Rifampin 300 MG CAP PO SCH (08:24)
[2022-11-05] MEDS: Benzonatate 100 MG CAP PO SCH ×3 (08:24→20:16)
[2022-11-05] MEDS: Pregabalin 75 MG CAP PO SCH ×2 (08:24→20:16)
[2022-11-05] MEDS: Acetaminophen/Codeine 30-300mg Tablet PO PRN ×4 (08:25→21:56)
[2022-11-05] MEDS: pyridOXINE 50 MG (B6) TAB PO SCH (08:25)
[2022-11-05] MEDS: Multivitamin W/ Minerals 1 TAB PO SCH (08:26)
[2022-11-05] MEDS: Isoniazid 100 MG TAB PO SCH (08:26)
[2022-11-05] MEDS: Ethambutol HCl 400 MG TAB PO SCH (08:26)
[2022-11-05] MEDS: Pyrazinamide 500 MG TAB PO SCH (08:26)
[2022-11-05] MEDS: Phenazopyridine HCl 100 MG TAB PO SCH ×3 (08:27→17:48)
[2022-11-05] MEDS: Polyethylene Glycol 3350 17 GM Packet PO SCH (08:27)
[2022-11-05] MEDS ORDERED: Senokot S 8.6-50 MG TAB PO SCH (10:00)
[2022-11-05] MEDS: Melatonin 3 MG TAB PO PRN (20:17)
[2022-11-06] MEDS: Morphine 2 MG/ML VIAL SLOW IVP PRN ×3 (00:21→12:39)
[2022-11-06] MEDS: Lorazepam 2 MG/ML VIAL SLOW IVP PRN (06:25)
[2022-11-06 07:49] LABS: #Basophils 0.1 thou/uL (0.0-0.2); #Eosinphils 0.3 thou/uL (0.0-0.7); #Monocytes 1.6 thou/uL (0.11-0.59); %Basophils 0.6 % (0.0-1.0); %Eosinophils 1.8 % (0.0-10.0); %Lymphocytes 4.9 % (21.0-51.0); %Monocytes 9.5 % (0.0-10.0); %Neutrophils 82.7 % (42.0-75.0); Hematocrit 30.4 % (42.0-52.0); Hemoglobin 10.3 g/dL (14.0-18.0); Mean Corpuscular HGB CONC 33.9 g/dL (32.0-36.0); Mean Corpuscular Hemoglobin 29.5 pg (27.0-31.0); Mean Corpuscular Volume 87.1 fl (78.0-98.0); Mean Platelet Volume 8.6 fL (7.4-10.4); Platelet Count 509 10x3/uL (130-400); RBC Distribution Width 14.2 % (11.5-14.5); Red Blood Cell (RBC) Count 3.49 mill/uL (4.70-6.10); White Blood Cell (WBC) Count 16.9 10x3/uL (4.8-10.8)
[2022-11-06 08:09] LABS: ALT (SGPT) 65 U/L (8-55); AST (SGOT) 48 U/L (5-34); Albumin 3.2 g/dL (3.5-5.0); Alkaline Phosphatase 245 U/L (40-110); Anion Gap 14 mmol/L (10-20); BUN (Urea Nitrogen) 14 mg/dL (8.9-20.6); Bilirubin, Total 0.4 mg/dL (0.2-1.2); Calc. Creatinine Clearance 135 mL/min (70-130); Calcium 9.9 mg/dL (7.8-10.44); Carbon Dioxide 25 mmol/L (22-29); Chloride 97 mmol/L (98-107); Estimated GFR 126; Globulin 4.1 g/dL (2.4-3.5); Glucose 107 mg/dL (70-105); Potassium 4.1 mmol/L (3.5-5.1); Protein, Total 7.3 g/dL (6.0-8.3); Sodium 132 mmol/L (136-145)
[2022-11-06] MEDS: Rifampin 300 MG CAP PO SCH (08:39)
[2022-11-06] MEDS: Acetaminophen/Codeine 30-300mg Tablet PO PRN ×4 (08:39→23:47)
[2022-11-06] MEDS: Isoniazid 100 MG TAB PO SCH (08:39)
[2022-11-06] MEDS: Benzonatate 100 MG CAP PO SCH ×3 (08:40→20:40)
[2022-11-06] MEDS: Ethambutol HCl 400 MG TAB PO SCH (08:40)
[2022-11-06] MEDS: guaiFENesin ER 600 MG TAB PO SCH ×2 (08:40→20:40)
[2022-11-06] MEDS: pyridOXINE 50 MG (B6) TAB PO SCH (08:40)
[2022-11-06] MEDS: Pregabalin 75 MG CAP PO SCH ×2 (08:40→20:41)
[2022-11-06] MEDS: Multivitamin W/ Minerals 1 TAB PO SCH (08:40)
[2022-11-06] MEDS: Pyrazinamide 500 MG TAB PO SCH (08:41)
[2022-11-06] MEDS: Phenazopyridine HCl 100 MG TAB PO SCH ×3 (08:41→17:26)
[2022-11-06] MEDS: Polyethylene Glycol 3350 17 GM Packet PO SCH (08:41)
[2022-11-06] MEDS: Lorazepam 0.5 MG TAB PO PRN ×2 (16:01→21:58)
[2022-11-06] MEDS ORDERED: Senokot S 8.6-50 MG TAB PO SCH (21:00)
[2022-11-06] MEDS: Melatonin 3 MG TAB PO PRN (21:58)
[2022-11-06] MEDS ORDERED: Ketorolac Tromethamine 30 MG/ML VIAL IVP PRN (22:41)
[2022-11-07] MEDS: Lorazepam 0.5 MG TAB PO PRN (04:22)
[2022-11-07] MEDS: Acetaminophen/Codeine 30-300mg Tablet PO PRN ×3 (04:22→09:21)
[2022-11-07 06:23] LABS: #Basophils 0.1 thou/uL (0.0-0.2); #Eosinphils 0.4 thou/uL (0.0-0.7); #Monocytes 1.8 thou/uL (0.11-0.59); #Neutrophils 11.8 thou/uL (1.40-6.50); %Basophils 0.5 % (0.0-1.0); %Eosinophils 2.3 % (0.0-10.0); %Lymphocytes 6.6 % (21.0-51.0); %Monocytes 12.1 % (0.0-10.0); Hematocrit 29.3 % (42.0-52.0); Hemoglobin 9.7 g/dL (14.0-18.0); Mean Corpuscular HGB CONC 33.1 g/dL (32.0-36.0); Mean Corpuscular Hemoglobin 29.7 pg (27.0-31.0); Mean Corpuscular Volume 89.6 fl (78.0-98.0); Mean Platelet Volume 8.7 fL (7.4-10.4); Platelet Count 477 10x3/uL (130-400); RBC Distribution Width 13.9 % (11.5-14.5); Red Blood Cell (RBC) Count 3.27 mill/uL (4.70-6.10); White Blood Cell (WBC) Count 15.1 10x3/uL (4.8-10.8)
[2022-11-07 07:00] LABS: Anion Gap 12 mmol/L (10-20); BUN (Urea Nitrogen) 26 mg/dL (8.9-20.6); Calc. Creatinine Clearance 76 mL/min (70-130); Calcium 9.6 mg/dL (7.8-10.44); Carbon Dioxide 26 mmol/L (22-29); Chloride 102 mmol/L (98-107); Estimated GFR 75; Glucose 109 mg/dL (70-105); Potassium 3.6 mmol/L (3.5-5.1); Sodium 136 mmol/L (136-145)
[2022-11-07] MEDS: Pregabalin 75 MG CAP PO SCH (08:39)
[2022-11-07] MEDS: Benzonatate 100 MG CAP PO SCH (08:39)
[2022-11-07] MEDS: Rifampin 300 MG CAP PO SCH (08:40)
[2022-11-07] MEDS: guaiFENesin ER 600 MG TAB PO SCH (08:40)
[2022-11-07] MEDS: Ethambutol HCl 400 MG TAB PO SCH (08:40)
[2022-11-07] MEDS: Phenazopyridine HCl 100 MG TAB PO SCH ×2 (08:40→13:12)
[2022-11-07] MEDS: Polyethylene Glycol 3350 17 GM Packet PO SCH (08:41)
[2022-11-07] MEDS: Pyrazinamide 500 MG TAB PO SCH (08:41)
[2022-11-07] MEDS: Multivitamin W/ Minerals 1 TAB PO SCH (08:41)
[2022-11-07] MEDS: pyridOXINE 50 MG (B6) TAB PO SCH (08:41)
[2022-11-07] MEDS ORDERED: Isoniazid 100 MG TAB PO SCH (09:00)
[2022-11-07 11:01] VITALS: BP 105/68; TEMP 98.4
[2022-11-07] MEDS ORDERED: Lorazepam 1 MG TAB PO PRN (11:41)
[2022-11-08 11:15] LABS: Reference Lab Name LABORP
== END 2022-11-07 14:24 | disposition home or self-care (01) | DRG 871 ==
LOC: ERS 10:54 → ERHOLD 14:13 → CCU 17:31 → T4-B 09-21 21:19 → 2SW 10-04 00:44 → T4-B 10-08 18:13
PROVIDERS: ADMIT Family Medicine; ATTEND Internal Medicine
PROC: 5A09557 Assistance with Respiratory Ventilation, Greater than 96 Consecutive Hours, Continuous Positive Airway Pressure (ICD-10-PCS; 2022-09-13)
PROC: 0W9930Z Drainage of Right Pleural Cavity with Drainage Device, Percutaneous Approach (ICD-10-PCS; principal; 2022-10-05)
PROC: 0W9930Z Drainage of Right Pleural Cavity with Drainage Device, Percutaneous Approach (ICD-10-PCS; 2022-10-07)
DX: A41.9 Sepsis, unspecified organism (principal); J15.9 Unspecified bacterial pneumonia; J96.01 Acute respiratory failure with hypoxia; A15.6 Tuberculous pleurisy; Z68.1 Body mass index [BMI] 19.9 or less, adult; E46 Unspecified protein-calorie malnutrition; E22.2 Syndrome of inappropriate secretion of antidiuretic hormone; R65.20 Severe sepsis without septic shock; R74.01 Elevation of levels of liver transaminase levels; E87.6 Hypokalemia; Z86.16 Personal history of COVID-19; Z79.899 Other long term (current) drug therapy; Z87.891 Personal history of nicotine dependence
CPT/HCPCS: 32551; 36415; 36416; 36600; 71045; 71250; 75984; 76380; 76870; 77002; 77012; 80048; 80053; 80076; 80202; 81001; 82805; 83516; 83615; 83690; 83735; 84100; 84134; 84145; 85025; 85060; 85610; 85652; 85730; 86037; 86038; 86140; 86225; 86480; 86606; 86698; 86704; 86706; 86709; 86803; 87040; 87070; 87081; 87102; 87116; 87205; 87206; 87340; 87389; 87449; 89051; 93005; 93010; 93306; 93976; 94660; 96374; 96375; 96376; C1729; C9113; J0571; J1170; J1450; J1650; J1885; J2020; J2060; J2185; J2250; J2270; J2272; J2405; J2543; J3010; J3370; J3370-JW; J3475; J3480; J3490; J7030; J7050; J7120

== ENCOUNTER 2022-12-02 14:06 | Outpatient (CLI) | payer OTHER | END 2022-12-02 14:07 | disposition home or self-care (01) | LOC: RAD 14:06 | PROVIDERS: ATTEND Thoracic Surgery (Cardiothoracic Vascular Surgery) | DX: J93.9 Pneumothorax, unspecified (principal); J98.4 Other disorders of lung; R91.8 Other nonspecific abnormal finding of lung field | CPT/HCPCS: 71046 ==